=== PATIENT | female | born 1930 | race Caucasian/White ===

== ENCOUNTER 2019-10-10 08:05 | Observation (INO) | payer MEDICARE, BC ==
[2019-10-10] MEDS ORDERED: Sodium Chloride 0.9% 10 ML Syringe FLUSH PRN (08:23)
[2019-10-10] MEDS ORDERED: hydrALAZINE 20 MG/ML SDV IVPUSH ONE (08:47)
--- NOTE | 2019-10-10 08:57 | EDM.PDOC ---
ED HPI GENERAL MEDICAL PROBLEM - General Chief Complaint: Neuro Symptoms/Deficits Stated Complaint: FROM KIMBERLY MARTIN Time Seen by Provider: 10/10/19 08:40 Source of Information: Reports: Patient, RN History Limitations: Reports: Other (limited medical records, new patient) - History of Present Illness INITIAL COMMENTS - FREE TEXT/NARRATIVE: 89 yo female new resident at [facility] assisted living presents with a LÓPEZ and pain in the R eye that began in the night last night. Her BP is also quite high today. She has taken all of her usual meds, but has not eaten yet today. She has a DNR status. She reports some intermittent L hand numbness since last night, but has none now. She denies nausea or stiff neck. No fever. No chest pain or SOB. She is on Eliquis. Kimberly Martin was contacted and it sounds like her BP's have been climbing for the past couple of weeks. BP was 165/68 on 09/24, 195/91 on 10/01, and 191/82 yesterday. Onset: Today Onset Date: 10/10/19 Duration: Hour(s):, Waxing/Waning Location: Reports: Head (headache), Face (R eye), Upper Extremity, Left (L hand numbness) Quality: Reports: Ache (head) Severity: Moderate Improves with: Reports: None Worsens with: Reports: Other (? time, ? BP elevation) Context: Reports: Other (See HPI) Associated Symptoms: Reports: Headaches, Other (L hand numbness intermitttently) . Denies: Fever/Chills, Nausea/Vomiting, Rash Treatments DIRECTOR DATA: Reports: Other (see below) (usual meds were given this am before arrival. ) Headache Pain Score (Numeric/FACES): 10 - Related Data Allergies Allergy/AdvReac Type Severity Reaction Status Date / Time atorvastatin Allergy Dizziness Verified 10/10/19 08:27 morphine Allergy Hallucinati Verified 10/10/19 08:26 ons Home Meds: Home Meds Abaloparatide [Tymlos] 80 mcg SQ DAILY 10/10/19 [History] Acetaminophen 650 mg PO Q6H PRN 10/10/19 [History] Apixaban [Eliquis] 2.5 mg PO BID 10/10/19 [History] Calcium Carbonate [Calcium] 600 mg PO BID 10/10/19 [History] Cholecalciferol (Vitamin D3) [Vitamin D3] 2,000 unit PO DAILY 10/10/19 [History] Cyanocobalamin (Vitamin B-12) [Vitamin B-12] 1,000 mcg PO DAILY 10/10/19 [ History] Ergocalciferol (Vitamin D2) [Vitamin D2] 1 tab PO ASDIRECTED 10/10/19 [History] Furosemide [Lasix] 20 mg PO ASDIRECTED PRN 10/10/19 [History] Glimepiride 1 mg PO DAILY 10/10/19 [History] Levothyroxine [Synthroid] 50 mcg PO ACBREAKFAST 10/10/19 [History] Metoprolol Succinate 50 mg PO DAILY 10/10/19 [History] Ondansetron [Ondansetron ODT] 4 mg PO Q8H PRN 10/10/19 [History] Sennosides/Docusate Sodium [Senna-S] 1 tab PO BID 10/10/19 [History] Sotalol [Betapace] 80 mg PO DAILY 10/10/19 [History] Ubidecarenone [Coenzyme Q10] 2 tab PO DAILY 10/10/19 [History] metFORMIN [Glucophage] 500 mg PO BIDMEALS 10/10/19 [History] oxyCODONE 2.5 mg PO Q4H PRN 10/10/19 [History] Past Medical History HEENT History: Reports: Hard of Hearing, Impaired Vision Cardiovascular History: Reports: [place], [place] Respiratory History: Reports: Other (See Below) Other Respiratory History: Acute respiratory faiure [employer] LE[employer]ER History: Reports: Musculoskeletal History: Reports: Fracture, Osteoporosis Neurological History: Reports: TIA Other Neuro History: Cerebrovasulaar disease Endocrine/Metabolic History: Reports: Diabetes, Type II, Hypothyroidism - Infectious Disease History Infectious Disease History: Reports: Chicken Pox, Measles, Mumps Social & Family History - Tobacco Use Smoking Status *Q: Unknown Ever Smoked ED ROS GENERAL - Review of Systems Review Of Systems: See Below Constitutional: Reports: No Symptoms HEENT: Reports: Eye Pain (R eye). Denies: Vision Change Respiratory: Reports: No Symptoms Cardiovascular: Reports: Blood Pressure Problem (high) GI/Abdominal: Reports: No Symptoms : Reports: No Symptoms Musculoskeletal: Reports: No Symptoms Skin: Reports: No Symptoms Neurological: Reports: Headache, Numbness (R hand intermittently), Other (no swallowing issues so far.). Denies: Seizure, Weakness, Change in Speech Psychiatric: Reports: No Symptoms Hematologic/Lymphatic: Reports: No Symptoms Immunologic: Reports: No Symptoms - Physical Exam Exam: See Below Exam Limited By: No Limitations General Appearance: Alert, WD/WN, No Apparent Distress Eye Exam: Bilateral Eye: EOMI, Normal Inspection, PERRL Ears: Normal External Exam, Normal Canal, Hearing Grossly Normal Nose: Normal Inspection, No Blood Throat/Mouth: Normal Inspection, Normal Lips, Normal Oropharynx, Normal Voice, No Airway Compromise Head Exam: Atraumatic, Normocephalic Neck: Normal Inspection Respiratory/Chest: No Respiratory Distress, Lungs Clear, Normal Breath Sounds, No Accessory Muscle Use Cardiovascular: Regular Rate, Rhythm, No Edema, Other GI/Abdominal: Normal Bowel Sounds, Soft, No Distention Neuro Exam (Abbreviated): Alert, Oriented, CN II-XII Intact, Normal Cognition, No Motor/Sensory Deficits Back Exam: Normal Inspection Extremities: Normal Inspection, Normal Range of Motion, Non-Tender, No Pedal Edema Psychiatric: Normal Affect, Normal Mood Skin Exam: Warm, Dry, Intact, Normal Color, No Rash EKG INTERPRETATION EKG Date: 10/10/19 Time: 10:55 Rhythm: NSR Rate (Beats/Min): 80 [place]: Normal P-Wave: Present QRS: Normal ST-T: Normal QT: Prolonged (borderline prolonged) MD/PQ Interval: borderline prolonged. Comparison: NA - No Prior EKG EKG Interpretation Comments: Flipped T's V5 and V6, and II, III and AVF Course - Vital Signs Text/Narrative:: BP dropped excessively after Hydralazine 25 mg IV. I fluid bolus of NS 1000 ml brought her BP back up into a normal range. The pain behind her R eye and her LÓPEZ are both gone now. She does have some residual nausea, but has not vomited. Compazine 5 mg IV reduced her nausea, but did not eliminate it. The numbness in her L hand did not return. Will try some Maalox and acetaminophen for her upset stomach(started after taking her morning meds on an empty stomach before arrival ). Dr. Tolbert called @ 11:15h, will bring in as OBS patient. Last Recorded V/S: Last Vital Signs Temp 36.6 C 10/10/19 08:23 Pulse 75 10/10/19 10:34 Resp 16 10/10/19 10:34 BP 147/65 H 10/10/19 10:34 Pulse Ox 93 L 10/10/19 10:34 - Orders/Labs/Meds Orders: Active Orders 24 hr Category Date Time Status Cardiac Monitoring [RC] .As Directed Care 10/10/19 08:23 Active EKG Documentation Completion [RC] ASDIRECTED Care 10/10/19 10:44 Active CULTURE URINE [RM] Stat Lab 10/10/19 10:39 Received Sodium Chloride 0.9% [Normal Saline] 1,000 ml Med 10/10/19 09:45 Active IV ASDIRECTED Sodium Chloride 0.9% [Saline Flush] Med 10/10/19 08:23 Active 10 ml FLUSH ASDIRECTED PRN Saline Lock Insert [OM.PC] Routine Oth 10/10/19 08:23 Ordered EKG 12 Lead [EK] Routine Ther 10/10/19 10:43 Ordered Medication Orders Sodium Chloride (Normal Saline) 1,000 mls @ 100 mls/hr IV ASDIRECTED BUCK Last Admin: 10/10/19 09:45 Dose: 100 mls/hr Sodium Chloride (Saline Flush) 10 ml FLUSH ASDIRECTED PRN PRN Reason: Keep Vein Open Last Admin: 10/10/19 08:27 Dose: 10 ml Labs: Laboratory Tests 10/10/19 10/10/19 10/10/19 Range/Units 08:24 08:29 08:29 WBC 4.8 (4.5-11.0) K/uL RBC 4.56 (3.30-5.50) M/uL Hgb 13.6 (12.0-15.0) g/dL Hct 42.4 (36.0-48.0) % MCV 93 (80-98) fL MCH 30 (27-31) pg MCHC 32 (32-36) % Plt Count 269 (150-400) K/uL PT 10.4 (9.5-12.0) sec INR 0.96 (0.80-1.20) Sodium (140-148) mmol/L Potassium (3.6-5.2) mmol/L Chloride (100-108) mmol/L Carbon Dioxide (21-32) mmol/L Anion Gap (5.0-14.0) mmol/L BUN (7-18) mg/dL Creatinine (0.6-1.0) mg/dL Est Cr Clr Drug Dosing mL/min Estimated GFR (MDRD) (>60) Glucose (74-106) mg/dL Calcium (8.5-10.1) mg/dL Troponin I (0.000-0.056) ng/mL Urine Color Yellow (YELLOW) Urine Appearance Slightly cloudy A (CLEAR) Urine pH 8.0 (5.0-8.0) Ur Specific [place] 1.025 (1.008-1.030) Urine Protein Trace H (NEGATIVE) mg/dL Urine Glucose (UA) Negative (NEGATIVE) mg/dL Urine Ketones 15 H (NEGATIVE) mg/dL Urine Occult Blood Negative (NEGATIVE) Urine Nitrite Negative (NEGATIVE) Urine Bilirubin Negative (NEGATIVE) Urine Urobilinogen 0.2 (0.2-1.0) EU/dL Ur Leukocyte Esterase Small H (NEGATIVE) Urine RBC 0-5 (0-5) Urine WBC 20-30 H (0-5) Ur Epithelial Cells Few Amorphous Sediment Not seen Urine Bacteria Moderate Urine Mucus Not seen 10/10/19 Range/Units 08:29 WBC (4.5-11.0) K/uL RBC (3.30-5.50) M/uL Hgb (12.0-15.0) g/dL Hct (36.0-48.0) % MCV (80-98) fL MCH (27-31) pg MCHC (32-36) % Plt Count (150-400) K/uL PT (9.5-12.0) sec INR (0.80-1.20) Sodium 134 L (140-148) mmol/L Potassium 4.4 (3.6-5.2) mmol/L Chloride 97 L (100-108) mmol/L Carbon Dioxide 28 (21-32) mmol/L Anion Gap 13.4 (5.0-14.0) mmol/L BUN 19 H (7-18) mg/dL Creatinine 1.1 H (0.6-1.0) mg/dL Est Cr Clr Drug Dosing 29.81 mL/min Estimated GFR (MDRD) 47 L (>60) Glucose 204 H (74-106) mg/dL Calcium 9.1 (8.5-10.1) mg/dL Troponin I < 0.017 (0.000-0.056) ng/mL Urine Color (YELLOW) Urine Appearance (CLEAR) Urine pH (5.0-8.0) Ur Specific [place] (1.008-1.030) Urine Protein (NEGATIVE) mg/dL Urine Glucose (UA) (NEGATIVE) mg/dL Urine Ketones (NEGATIVE) mg/dL Urine Occult Blood (NEGATIVE) Urine Nitrite (NEGATIVE) Urine Bilirubin (NEGATIVE) Urine Urobilinogen (0.2-1.0) EU/dL Ur Leukocyte Esterase (NEGATIVE) Urine RBC (0-5) Urine WBC (0-5) Ur Epithelial Cells Amorphous Sediment Urine Bacteria Urine Mucus Meds: Medications Generic Name Dose Route Start Last Admin Trade Name Freq PRN Reason Stop Dose Admin Sodium Chloride 1,000 mls @ 100 mls/hr 10/10/19 09:45 10/10/19 09:45 Normal Saline IV 100 mls/hr ASDIRECTED BUCK Administration Sodium Chloride 10 ml 10/10/19 08:23 10/10/19 08:27 Saline Flush FLUSH 10 ml ASDIRECTED PRN Administration Keep Vein Open Discontinued Medications Generic Name Dose Route Start Last Admin Trade Name Freq PRN Reason Stop Dose Admin Acetaminophen 1,000 mg 10/10/19 09:18 10/10/19 10:27 Tylenol Extra Strength PO 10/10/19 09:19 1,000 mg ONETIME ONE Administration Al Hydroxide/Mg Hydroxide 30 ml 10/10/19 09:50 10/10/19 09:51 Mag-Al Plus PO 10/10/19 09:51 30 ml ONETIME ONE Administration Cephalexin 500 mg 10/10/19 10:36 10/10/19 10:59 Keflex PO 10/10/19 10:37 500 mg ONETIME ONE Administration Hydralazine HCl 25 mg 10/10/19 08:47 10/10/19 08:56 Apresoline IVPUSH 10/10/19 08:48 25 mg ONETIME ONE Administration Sodium Chloride 1,000 mls @ 1,000 mls/hr 10/10/19 09:13 10/10/19 09:19 Normal Saline IV 10/10/19 10:12 1,000 mls/hr .BOLUS ONE Administration Prochlorperazine Edisylate 5 mg 10/10/19 09:07 10/10/19 09:10 Compazine IVPUSH 10/10/19 09:08 5 mg ONETIME ONE Administration - Radiology Interpretation Free Text/Narrative:: Head CT scan-neg CT Results Date: 10/10/19 CT Results Time: 09:10 Departure - Departure Time of Disposition: 11:30 Disposition: Refer to Observation Clinical Impression: Elevated blood pressure reading, Inverted T wave HTN (hypertension) Qualifiers: Hypertension type: unspecified Qualified Code(s): I10 - Essential (primary) hypertension UTI (urinary tract infection) Qualifiers: Urinary tract infection type: acute cystitis Hematuria presence: without hematuria Qualified Code(s): N30.00 - Acute cystitis without hematuria Headache Qualifiers: Headache type: unspecified Headache chronicity pattern: acute headache Intractability: not intractable Qualified Code(s): R51 - Headache - Discharge Information *PRESCRIPTION DRUG MONITORING PROGRAM REVIEWED*: Not Applicable *COPY OF PRESCRIPTION DRUG MONITORING REPORT IN PATIENT DONNA: Not Applicable Referrals: Payam Calloway MD [Primary Care Provider] - Forms: ED Department Discharge Sepsis Event Note - Evaluation Sepsis Screening Result: No Definite Risk - Focused Exam Vital Signs: Vital Signs Temp Pulse Resp BP Pulse Ox 10/10/19 10:34 75 16 147/65 H 93 L 10/10/19 09:46 79 19 115/50 L 96 10/10/19 09:19 70 10 L 107/44 L 94 L 10/10/19 09:14 65 18 74/42 L 96 10/10/19 09:11 59 L 12 81/37 L 98 10/10/19 09:08 58 L 19 129/99 H 97 10/10/19 08:58 63 16 218/93 H 96 10/10/19 08:23 36.6 C 65 16 244/127 H 96 10/10/19 08:05 36.6 C 65 16 254/124 H 96 Date Exam was Performed: 10/10/19 Time Exam was Performed: 11:08 - My Orders Last 24 Hours: My Active Orders 10/10/19 08:23 Cardiac Monitoring [RC] .As Directed Sodium Chloride 0.9% [Saline Flush] 10 ml FLUSH ASDIRECTED PRN Saline Lock Insert [OM.PC] Routine 10/10/19 09:45 Sodium Chloride 0.9% [Normal Saline] 1,000 ml IV ASDIRECTED 04/21/20 10:39 CULTURE URINE [RM] Stat 10/10/19 10:43 EKG 12 Lead [EK] Routine 10/10/19 10:44 EKG Documentation Completion [RC] ASDIRECTED - Assessment/Plan Last 24 Hours: My Active Orders 10/10/19 08:23 Cardiac Monitoring [RC] .As Directed Sodium Chloride 0.9% [Saline Flush] 10 ml FLUSH ASDIRECTED PRN Saline Lock Insert [OM.PC] Routine 10/10/19 09:45 Sodium Chloride 0.9% [Normal Saline] 1,000 ml IV ASDIRECTED 10/10/19 10:39 CULTURE URINE [RM] Stat 10/10/19 10:43 EKG 12 Lead [EK] Routine 10/10/19 10:44 EKG Documentation Completion [RC] ASDIRECTED
--- NOTE | 2019-10-10 09:05 | CRLCT ---
INDICATION : New neurological deficit. Stroke protocol. TECHNIQUE : Noncontrast CT scan of brain. Axial images. Bone windows. Please note that all CT scans at this facility use dose modulation, iterative reconstruction and/or weight-based dosing when appropriate to reduce radiation dose to as low as reasonably achievable(ALARA). COMPARISON: None. FINDINGS : No acute intra or extra-axial hemorrhage. No visualized intracranial mass. Minimal age related atrophy. Scattered areas of periventricular and deep white matter low attenuation, likely sequela from chronic microvascular disease. Hess-white matter differentiation preserved. Atherosclerotic vascular calcification in the bilateral intracranial carotid arteries. No dense MCA sign. Bony calvarium is intact. IMPRESSION : 1. No acute territorial infarct, mass effect, or hemorrhage. 2. Mild degree of age-related atrophy and chronic microvascular disease. 3. Consider correlation with brain MRI for improved sensitivity in evaluation of acute ischemia as clinically warranted. Dictated by James Cohen MD @ 10/10/2019 9:03:20 AM Please note that all CT scans at this facility use dose modulation, iterative reconstruction, and/or weight-based dosing when appropriate to reduce radiation dose to as low as reasonably achievable. Dictated by: James Cohen MD @ 10/10/2019 09:03:33 (Electronically Signed)
[2019-10-10] MEDS ORDERED: Prochlorperazine 10 MG/2 ML SDV IVPUSH ONE (09:07)
[2019-10-10] MEDS ORDERED: Sodium Chloride 0.9% 1,000 ML IV ONE (09:13)
[2019-10-10] MEDS ORDERED: Acetaminophen 500 MG Tab PO ONE (09:18)
[2019-10-10] MEDS ORDERED: Sodium Chloride 0.9% 1,000 ML IV SCH (09:45)
[2019-10-10] MEDS ORDERED: Aluminum Hydroxide/Magnesium Hydroxide/Simethicone Susp 30 ML Cup PO ONE (09:50)
[2019-10-10] MEDS ORDERED: Cephalexin 250 MG Cap PO ONE (10:36)
--- NOTE | 2019-10-10 12:31 | PCM.HP.2 ---
H&P History of Present Illness - General Date of Service: 10/10/19 Admit Problem/Dx: Admission Diagnosis/Problem Admission Diagnosis/Problem Acute cystitis without hematuria Source of Information: Patient, Provider History Limitations: Reports: No Limitations - History of Present Illness Initial Comments - Free Text/Narative: CC: I had a headache HPI: Cammy presented to the emergency room today with concerns about headache, right eye pain and left hand numbness as well as nausea and generalized abdominal pain. She noted onset of nausea and mild generalized abdominal pain yesterday. She described a crampy or achy pain in her abdomen. The pain radiated throughout her abdomen. She did not take anything to make it feel better. The pain has worsened overnight to the point that it is now moderate. She has had persistent nausea as well as episodes of vomiting which have been small-volume. When she woke up this morning she had a frontal headache which was moderate in nature. She described a slightly more intense pain behind the right eye. She also had some numbness of her left hand but no change in her strength. She has not had any fevers or chills. She feels a little short of breath and weak. No change in bowel or bladder habits. She has not slept well the last 3 nights. Blood pressure the last few days has been running high at her assisted living facility but she has not had any fevers noted there. Work-up in the emergency room initially revealed significant hypertension with a systolic blood pressure higher than 200. An attempt to lower her blood pressure was made with hydralazine but unfortunately this dropped it significantly. Her blood pressure did improve with some IV fluids. Laboratory studies were fairly unremarkable. Urinalysis was moderately suggestive of infection. Head CT did not show any acute findings. Patient has had persistent nausea and some abdominal pain. She did receive an oral dose of antibiotics for the urinary tract infection. She will be admitted for observation and additional management. Headache Pain Score (Numeric/FACES): 10 - Related Data Allergies/Adverse Reactions: Allergies Allergy/AdvReac Type Severity Reaction Status Date / Time atorvastatin Allergy Dizziness Verified 10/10/19 08:27 morphine Allergy Hallucinati Verified 10/10/19 08:26 ons Home Medications: Home Meds Abaloparatide [Tymlos] 80 mcg SQ DAILY 10/10/19 [History] Acetaminophen 650 mg PO Q6H PRN 10/10/19 [History] Apixaban [Eliquis] 2.5 mg PO BID 10/10/19 [History] Calcium Carbonate [Calcium] 600 mg PO BID 10/10/19 [History] Cholecalciferol (Vitamin D3) [Vitamin D3] 2,000 unit PO DAILY 10/10/19 [History] Cyanocobalamin (Vitamin B-12) [Vitamin B-12] 1,000 mcg PO DAILY 10/10/19 [ History] Ergocalciferol (Vitamin D2) [Vitamin D2] 1 tab PO ASDIRECTED 10/10/19 [History] Furosemide [Lasix] 20 mg PO ASDIRECTED PRN 10/10/19 [History] Glimepiride 1 mg PO DAILY 10/10/19 [History] Levothyroxine [Synthroid] 50 mcg PO ACBREAKFAST 10/10/19 [History] Metoprolol Succinate 50 mg PO DAILY 10/10/19 [History] Ondansetron [Ondansetron ODT] 4 mg PO Q8H PRN 10/10/19 [History] Sennosides/Docusate Sodium [Senna-S] 1 tab PO BID 10/10/19 [History] Sotalol [Betapace] 80 mg PO DAILY 10/10/19 [History] Ubidecarenone [Coenzyme Q10] 2 tab PO DAILY 10/10/19 [History] metFORMIN [Glucophage] 500 mg PO BIDMEALS 10/10/19 [History] oxyCODONE 2.5 mg PO Q4H PRN 10/10/19 [History] Past Medical History HEENT History: Reports: Hard of Hearing, Impaired Vision Cardiovascular History: Reports: Afib, [place] Respiratory History: Reports: Other (See Below) Other Respiratory History: Acute respiratory faiure 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: Musculoskeletal History: Reports: Fracture, Osteoporosis Neurological History: Reports: TIA Other Neuro History: Cerebrovasulaar disease Endocrine/Metabolic History: Reports: Diabetes, Type II, Hypothyroidism - Infectious Disease History Infectious Disease History: Reports: Chicken Pox, Measles, Mumps Social & Family History - Family History Cardiac: Denies: CAD - Tobacco Use Smoking Status *Q: Unknown Ever Smoked - Alcohol Use Alcohol Use History: No H&P Review of Systems - Review of Systems: Review Of Systems: See Below Free Text/Narrative: A complete 12 point review of systems was obtained. Pertinent positives and negatives are noted in the history of present illness. All other systems were reviewed and were negative except as noted. Exam - Exam Exam: See Below - Vital Signs Vital Signs: Last Vital Signs Temp 36.6 C 10/10/19 08:23 Pulse 75 10/10/19 10:34 Resp 16 10/10/19 10:34 BP 147/65 H 10/10/19 10:34 Pulse Ox 93 L 10/10/19 10:34 Weight: 58.06 kg - Exam Quality Assessment: No: Supplemental Oxygen General: Alert, Oriented, Cooperative, Mild Distress HEENT: Conjunctiva Clear. No: Mucosa Moist & [place] (dry), Scleral Icterus Neck: Supple, Trachea Midline Lungs: Clear to Auscultation, Normal Respiratory Effort Cardiovascular: Regular Rate, Regular Rhythm GI/Abdominal Exam: Normal Bowel Sounds, Soft, Distended (mild), Tender ( generalized ) Back Exam: Normal Inspection, Full Range of Motion Extremities: No Pedal Edema. No: Increased Warmth Peripheral Pulses: 2+: Dorsalis Pedis (L), Dorsalis Pedis (R) Skin: Warm, Dry Neuro Extensive - Mental Status: Alert, Oriented x3, Nl Response to Commands Neuro Extensive - Motor, Sensory, Reflexes: No: Dysarthria, Abnormal Motor, Tremor Psychiatric: Alert, Normal Affect - Patient Data Lab Results Last 24 hrs: Laboratory Results - last 24 hr 10/10/19 10/10/19 10/10/19 Range/Units 08:24 08:29 08:29 WBC 4.8 (4.5-11.0) K/uL RBC 4.56 (3.30-5.50) M/uL Hgb 13.6 (12.0-15.0) g/dL Hct 42.4 (36.0-48.0) % MCV 93 (80-98) fL MCH 30 (27-31) pg MCHC 32 (32-36) % Plt Count 269 (150-400) K/uL PT 10.4 (9.5-12.0) sec INR 0.96 (0.80-1.20) Sodium (140-148) mmol/L Potassium (3.6-5.2) mmol/L Chloride (100-108) mmol/L Carbon Dioxide (21-32) mmol/L Anion Gap (5.0-14.0) mmol/L BUN (7-18) mg/dL Creatinine (0.6-1.0) mg/dL Est Cr Clr Drug Dosing mL/min Estimated GFR (MDRD) (>60) Glucose (74-106) mg/dL Calcium (8.5-10.1) mg/dL Troponin I (0.000-0.056) ng/mL Urine Color Yellow (YELLOW) Urine Appearance Slightly cloudy A (CLEAR) Urine pH 8.0 (5.0-8.0) Ur Specific Berry 1.025 (1.008-1.030) Urine Protein Trace H (NEGATIVE) mg/dL Urine Glucose (UA) Negative (NEGATIVE) mg/dL Urine Ketones 15 H (NEGATIVE) mg/dL Urine Occult Blood Negative (NEGATIVE) Urine Nitrite Negative (NEGATIVE) Urine Bilirubin Negative (NEGATIVE) Urine Urobilinogen 0.2 (0.2-1.0) EU/dL Ur Leukocyte Esterase Small H (NEGATIVE) Urine RBC 0-5 (0-5) Urine WBC 20-30 H (0-5) Ur Epithelial Cells Few Amorphous Sediment Not seen Urine Bacteria Moderate Urine Mucus Not seen 10/10/19 Range/Units 08:29 WBC (4.5-11.0) K/uL RBC (3.30-5.50) M/uL Hgb (12.0-15.0) g/dL Hct (36.0-48.0) % MCV (80-98) fL MCH (27-31) pg MCHC (32-36) % Plt Count (150-400) K/uL PT (9.5-12.0) sec INR (0.80-1.20) Sodium 134 L (140-148) mmol/L Potassium 4.4 (3.6-5.2) mmol/L Chloride 97 L (100-108) mmol/L Carbon Dioxide 28 (21-32) mmol/L Anion Gap 13.4 (5.0-14.0) mmol/L BUN 19 H (7-18) mg/dL Creatinine 1.1 H (0.6-1.0) mg/dL Est Cr Clr Drug Dosing 29.81 mL/min Estimated GFR (MDRD) 47 L (>60) Glucose 204 H (74-106) mg/dL Calcium 9.1 (8.5-10.1) mg/dL Troponin I < 0.017 (0.000-0.056) ng/mL Urine Color (YELLOW) Urine Appearance (CLEAR) Urine pH (5.0-8.0) Ur Specific Berry (1.008-1.030) Urine Protein (NEGATIVE) mg/dL Urine Glucose (UA) (NEGATIVE) mg/dL Urine Ketones (NEGATIVE) mg/dL Urine Occult Blood (NEGATIVE) Urine Nitrite (NEGATIVE) Urine Bilirubin (NEGATIVE) Urine Urobilinogen (0.2-1.0) EU/dL Ur Leukocyte Esterase (NEGATIVE) Urine RBC (0-5) Urine WBC (0-5) Ur Epithelial Cells Amorphous Sediment Urine Bacteria Urine Mucus Result Diagrams: 10/10/19 08:29 10/10/19 08:29 Imaging Impressions Last 24 hrs: Head CT-images personally reviewed-mild chronic small vessel ischemic disease but no acute findings such as mass, bleed or stroke EKG INTERPRETATION EKG Date: 10/10/19 Rhythm: NSR Rate (Beats/Min): 80 Dix: Normal P-Wave: Present QRS: Normal ST-T: Other (inverted T in II, III, avf, V5 and V6) QT: Normal Comparison: NA - No Prior EKG Sepsis Event Note - Evaluation Sepsis Screening Result: No Definite Risk - Focused Exam Vital Signs: Vital Signs Temp Pulse Resp BP Pulse Ox 10/10/19 10:34 75 16 147/65 H 93 L 10/10/19 09:46 79 19 115/50 L 96 10/10/19 09:19 70 10 L 107/44 L 94 L 10/10/19 09:14 65 18 74/42 L 96 10/10/19 09:11 59 L 12 81/37 L 98 10/10/19 09:08 58 L 19 129/99 H 97 10/10/19 08:58 63 16 218/93 H 96 10/10/19 08:23 36.6 C 65 16 244/127 H 96 10/10/19 08:05 36.6 C 65 16 254/124 H 96 Date Exam was Performed: 10/10/19 Time Exam was Performed: 14:47 *Q Meaningful Use (ADM) - VTE Risk Assess *Q Each Risk Factor Represents 1 Point: None Total Score 1 Point Risk Factors: 0 Each Risk Factor Represents 2 Points: None Total Score 2 Point Risk Factors: 0 Each Risk Factor Represents 3 Points: Age 75 Years or Greater Total Score 3 Point Risk Factors: 3 Each Risk Factor Represents 5 Points: None Total Score 5 Point Risk Factors: 0 Venous Thromboembolism Risk Factor Score *Q: 3 - Problem List (1) Acute cystitis without hematuria SNOMED Code(s): 77032455 ICD Code: N30.00 - ACUTE CYSTITIS WITHOUT HEMATURIA Status: Acute Current Visit: Yes (2) Abdominal pain, generalized SNOMED Code(s): 890014207 ICD Code: R10.84 - GENERALIZED ABDOMINAL PAIN Status: Acute Current Visit : Yes (3) Nausea & vomiting SNOMED Code(s): 44535484 ICD Code: R11.2 - NAUSEA WITH VOMITING, UNSPECIFIED Status: Acute Current Visit: Yes Qualifiers: Vomiting type: unspecified Vomiting Intractability: non-intractable Qualified Code(s): R11.2 - Nausea with vomiting, unspecified (4) DM II (diabetes mellitus, type II), controlled SNOMED Code(s): 16912139, 160337989 ICD Code: E11.9 - TYPE 2 DIABETES MELLITUS WITHOUT COMPLICATIONS Status: Chronic Current Visit: Yes Qualifiers: Diabetes mellitus superintendent container terminal insulin use: without longterm use Diabetes mellitus complication status: with unspecified complications Qualified Code(s) : E11.8 - Type 2 diabetes mellitus with unspecified complications (5) HTN (hypertension) SNOMED Code(s): 62127147 ICD Code: I10 - ESSENTIAL (PRIMARY) HYPERTENSION Status: Chronic Current Visit: Yes Qualifiers: Hypertension type: essential hypertension Qualified Code(s): I10 - Essential (primary) hypertension Problem List Initiated/Reviewed/Updated: Yes Orders Last 24hrs: Active Orders 24 hr Category Date Time Status Patient Status Manage Transfer [TRANSFER] Routine ADT 10/10/19 12:14 Ordered Cardiac Monitoring [RC] .As Directed Care 10/10/19 08:23 Active EKG Documentation Completion [RC] ASDIRECTED Care 10/10/19 10:44 Active CULTURE URINE [RM] Stat Lab 10/10/19 10:39 Received Sodium Chloride 0.9% [Normal Saline] 1,000 ml Med 10/10/19 09:45 Active IV ASDIRECTED Sodium Chloride 0.9% [Saline Flush] Med 10/10/19 08:23 Active 10 ml FLUSH ASDIRECTED PRN Saline Lock Insert [OM.PC] Routine Oth 10/10/19 08:23 Ordered Resuscitation Status Routine Resus Stat 10/10/19 12:19 Ordered EKG 12 Lead [EK] Routine Ther 10/10/19 10:43 Ordered Medication Orders Sodium Chloride (Normal Saline) 1,000 mls @ 100 mls/hr IV ASDIRECTED BUCK Last Admin: 10/10/19 09:45 Dose: 100 mls/hr Sodium Chloride (Saline Flush) 10 ml FLUSH ASDIRECTED PRN PRN Reason: Keep Vein Open Last Admin: 10/10/19 08:27 Dose: 10 ml Assessment/Plan Comment:: ASSESSMENT AND PLAN - Acute cystitis without hematuria-although this infection was asymptomatic I suspect that this is the cause for her accelerated hypertension, nausea and abdominal pain. Laboratory studies are unremarkable. No other obvious cause for the abnormalities outlined above. Vitals are stable with no evidence for sepsis. Blood pressure currently acceptable. No evidence for acute coronary syndrome to explain symptoms. -Ceftriaxone -Follow-up urine culture -Symptomatic management of abdominal pain and nausea -IV fluids Type 2 diabetes mellitus-well controlled by history. -Continue home medications Essential hypertension-blood pressure initially elevated but has stabilized after medication and IV fluids. -Continue metoprolol Paroxysmal atrial fibrillation-currently in sinus rhythm. -Continue rate control and anticoagulation Maintenance issues - - DVT prophylaxis -apixaban - GI prophylaxis -not indicated - Nutrition -consistent carbohydrates - Hutchins catheter -not indicated CODE STATUS -DNR/DNI Admission justification -patient will be referred observation status for initiation of antibiotics and symptom management. Disposition -I would anticipate discharge home after the hospital stay Primary care physician -Dr. Payam Tolbert M.D. - Mortality Measure Prognosis:: Good
[2019-10-10] MEDS ORDERED: oxyCODONE 5 MG Tab PO PRN (13:41)
[2019-10-10] MEDS ORDERED: Ondansetron 4 MG Tab.DIS PO PRN (13:41)
[2019-10-10] MEDS ORDERED: Magnesium Hydroxide 400 MG/5 ML Susp 30 ML Cup PO PRN (13:41)
[2019-10-10] MEDS ORDERED: HYDROmorphone 0.5 MG/0.5 ML Syringe IVPUSH PRN (13:41)
[2019-10-10] MEDS ORDERED: Ondansetron 4 MG/2 ML SDV IV PRN (13:41)
[2019-10-10] MEDS ORDERED: LORazepam 2 MG/ML SDV IVPUSH PRN (13:41)
[2019-10-10] MEDS ORDERED: Acetaminophen 325 MG Tab PO PRN (13:41)
[2019-10-10] MEDS: cefTRIAXone 1 GM in Sodium Chloride 0.9% 50 ML IV SCH (15:07)
[2019-10-10] MEDS: METFORMIN 500 MG PO SCH (18:15)
[2019-10-10] MEDS: CALCIUM CARBONATE 600 MG PO SCH (18:15)
[2019-10-10] MEDS: Melatonin 3 MG Tab PO SCH (21:00)
[2019-10-10] MEDS: SOTALOL 80 MG PO SCH (21:02)
[2019-10-10] MEDS: APIXABAN 2.5 MG PO SCH (21:02)
[2019-10-10] MEDS: Sodium Chloride 0.9% 1,000 ML IV SCH (21:06)
[2019-10-11] MEDS: Sodium Chloride 0.9% 1,000 ML IV SCH (06:34)
[2019-10-11] MEDS: Levothyroxine 50 MCG Tab*POM PO SCH (06:34)
[2019-10-11] MEDS: CALCIUM CARBONATE 600 MG PO SCH ×2 (08:29→16:57)
[2019-10-11] MEDS: METFORMIN 500 MG PO SCH ×2 (08:29→16:57)
[2019-10-11] MEDS: APIXABAN 2.5 MG PO SCH ×2 (08:29→20:12)
[2019-10-11] MEDS: CYANOCOBALAMIN 1000 MCG PO SCH (08:32)
[2019-10-11] MEDS: Metoprolol Succinate 50 MG Tab.ER*POM PO SCH (08:34)
[2019-10-11] MEDS ORDERED: Furosemide 40 MG/4 ML VIAL IVPUSH ONE (11:40)
--- NOTE | 2019-10-11 11:54 | PCM.PN ---
- General Info Date of Service: 10/11/19 Subjective Update: There were no acute events overnight. Her blood pressure did stabilize overnight but this morning is elevated at 190-200 systolic. She feels much better today. No headache or eye pain. No nausea or abdominal pain. She does report that she feels more short of breath today. She did have some orthopnea last night. No fevers. Urine culture growing mixed erich so far. Functional Status: Reports: Pain Controlled, Tolerating Diet - Review of Systems General: Reports: Weakness. Denies: Fever Pulmonary: Reports: Shortness of Breath - Patient Data Vitals - Most Recent: Last Vital Signs Temp 36.9 C 10/11/19 11:37 Pulse 77 10/11/19 11:37 Resp 22 H 10/11/19 11:37 BP 219/92 H 10/11/19 11:37 Pulse Ox 93 L 10/11/19 11:37 Weight - Most Recent: 58.06 kg I&O - Last 24 Hours: Intake & Output 10/10/19 10/11/19 10/11/19 22:59 06:59 14:59 Intake Total 350 801 340 Output Total 250 400 Balance 350 551 -60 Lab Results Last 24 Hours: Laboratory Results - last 24 hr 10/11/19 10/11/19 Range/Units 04:36 04:36 WBC 6.3 (4.5-11.0) K/uL RBC 4.18 (3.30-5.50) M/uL Hgb 12.6 (12.0-15.0) g/dL Hct 39.0 (36.0-48.0) % MCV 93 (80-98) fL MCH 30 (27-31) pg MCHC 32 (32-36) % Plt Count 234 (150-400) K/uL Sodium 137 L (140-148) mmol/L Potassium 3.9 (3.6-5.2) mmol/L Chloride 102 (100-108) mmol/L Carbon Dioxide 24 (21-32) mmol/L Anion Gap 14.9 H (5.0-14.0) mmol/L BUN 14 (7-18) mg/dL Creatinine 0.8 (0.6-1.0) mg/dL Est Cr Clr Drug Dosing 40.97 mL/min Estimated GFR (MDRD) > 60 (>60) Glucose 157 H (74-106) mg/dL Calcium 8.3 L (8.5-10.1) mg/dL Grupo Results Last 24 Hours: Microbiology 10/10/19 10:39 Urine Culture - Preliminary Urine, Clean Catch MIXED POSITIVE ERICH DAY 1 Med Orders - Current: Current Medications Acetaminophen (Tylenol) 650 mg PO Q4H PRN PRN Reason: Pain (Mild 1-3)/fever Apixaban (Eliquis) 2.5 mg PO BID [facility] Last Admin: 10/11/19 08:29 Dose: 2.5 mg Cyanocobalamin (Vitamin B12) 1,000 mcg PO DAILY [facility] Last Admin: 10/11/19 08:32 Dose: 1,000 mcg Hydromorphone HCl (Dilaudid) 0.25 mg IVPUSH Q2H PRN PRN Reason: Pain (severe 7-10) Ceftriaxone Sodium 1 gm/ (Sodium Chloride) 50 mls @ 100 mls/hr IV Q24H [facility] Last Admin: 10/10/19 15:07 Dose: 100 mls/hr Levothyroxine Sodium (Synthroid) 50 mcg PO Q24H [facility] Last Admin: 10/11/19 06:34 Dose: 50 mcg Lisinopril (Prinivil) 5 mg PO DAILY [facility] Lorazepam (Ativan) 0.5 mg IVPUSH Q4H PRN PRN Reason: Nausea/Vomiting Magnesium Hydroxide (Milk Of Magnesia) 30 ml PO Q12H PRN PRN Reason: Constipation Melatonin (Melatonin) 9 mg PO BEDTIME [facility] Last Admin: 10/10/19 21:00 Dose: 9 mg Metformin HCl (Glucophage) 500 mg PO BIDMEALS [facility] Last Admin: 10/11/19 08:29 Dose: 500 mg Metoprolol Succinate (Toprol Xl) 50 mg PO DAILY [facility] Last Admin: 10/11/19 08:34 Dose: 50 mg (Calcium Carbonate [ Calcium] 600 Mg)*Pom * 600 mg PO BIDMEALS [facility] Last Admin: 10/11/19 08:29 Dose: 600 mg (Glimepiride [ Glimepiride] 1 Mg)* Pom* 1 mg PO DAILY@0800 [facility] Last Admin: 10/11/19 08:28 Dose: 1 mg Ondansetron HCl (Zofran Odt) 4 mg PO Q6H PRN PRN Reason: Nausea able to take PO Ondansetron HCl (Zofran) 4 mg IV Q6H PRN PRN Reason: Nausea/Vomiting Oxycodone HCl (Oxycodone) 2.5 mg PO Q4H PRN PRN Reason: Pain Senna/Docusate Sodium (Senna Plus) 1 tab PO BID [facility] Last Admin: 10/11/19 08:33 Dose: 1 tab Sodium Chloride (Saline Flush) 10 ml FLUSH ASDIRECTED PRN PRN Reason: Keep Vein Open Last Admin: 10/10/19 08:27 Dose: 10 ml Sotalol HCl (Betapace) 80 mg PO BEDTIME [facility] Last Admin: 10/10/19 21:02 Dose: 80 mg Discontinued Medications Acetaminophen (Tylenol Extra Strength) 1,000 mg PO ONETIME ONE Stop: 10/10/19 09:19 Last Admin: 10/10/19 10:27 Dose: 1,000 mg Al Hydroxide/Mg Hydroxide (Mag-Al Plus) 30 ml PO ONETIME ONE Stop: 10/10/19 09:51 Last Admin: 10/10/19 09:51 Dose: 30 ml Cephalexin (Keflex) 500 mg PO ONETIME ONE Stop: 10/10/19 10:37 Last Admin: 10/10/19 10:59 Dose: 500 mg Furosemide (Lasix) 40 mg IVPUSH ONETIME ONE Stop: 10/11/19 11:41 Hydralazine HCl (Apresoline) 25 mg IVPUSH ONETIME ONE Stop: 10/10/19 08:48 Last Admin: 10/10/19 08:56 Dose: 25 mg Sodium Chloride (Normal Saline) 1,000 mls @ 1,000 mls/hr IV .BOLUS ONE Stop: 10/10/19 10:12 Last Admin: 10/10/19 09:19 Dose: 1,000 mls/hr Sodium Chloride (Normal Saline) 1,000 mls @ 100 mls/hr IV ASDIRECTED [facility] Last Admin: 10/10/19 09:45 Dose: 100 mls/hr Sodium Chloride (Normal Saline) 1,000 mls @ 100 mls/hr IV ASDIRECTED [facility] Last Admin: 10/11/19 06:34 Dose: 100 mls/hr Prochlorperazine Edisylate (Compazine) 5 mg IVPUSH ONETIME ONE Stop: 10/10/19 09:08 Last Admin: 10/10/19 09:10 Dose: 5 mg - Exam Quality Assessment: No: Supplemental Oxygen General: Alert, Oriented, Cooperative, No Acute Distress Neck: JVD Lungs: Normal Respiratory Effort, Decreased Breath Sounds (left lung base) Cardiovascular: Regular Rate, Regular Rhythm GI/Abdominal Exam: Soft, No Distention Extremities: No Pedal Edema Psy/Mental Status: Alert, Normal Affect Sepsis Event Note - Evaluation Sepsis Screening Result: No Definite Risk - Focused Exam Vital Signs: Vital Signs Temp Pulse Pulse Resp BP BP Pulse Ox 10/11/19 11:37 36.9 C 77 22 H 219/92 H 93 L 10/11/19 11:00 190/80 H 10/11/19 09:48 74 22 H 171/64 H 93 L 10/11/19 09:35 88 L 10/11/19 08:34 66 190/77 H 10/11/19 07:00 36.2 C 66 18 190/77 H 96 10/11/19 02:05 36.6 C 65 16 146/53 H 94 L Date Exam was Performed: 10/11/19 Time Exam was Performed: 13:14 - Problem List & Annotations (1) Acute cystitis without hematuria SNOMED Code(s): 29002663 Code(s): N30.00 - ACUTE CYSTITIS WITHOUT HEMATURIA Status: Acute Current Visit: Yes (2) Abdominal pain, generalized SNOMED Code(s): 662216007 Code(s): R10.84 - GENERALIZED ABDOMINAL PAIN Status: Acute Current Visit : Yes (3) Nausea & vomiting SNOMED Code(s): 34470384 Code(s): R11.2 - NAUSEA WITH VOMITING, UNSPECIFIED Status: Acute Current Visit: Yes Qualifiers: Vomiting type: unspecified Vomiting Intractability: non-intractable Qualified Code(s): R11.2 - Nausea with vomiting, unspecified (4) DM II (diabetes mellitus, type II), controlled SNOMED Code(s): 97683254, 181356592 Code(s): E11.9 - TYPE 2 DIABETES MELLITUS WITHOUT COMPLICATIONS Status: Chronic Current Visit: Yes Qualifiers: Diabetes mellitus extermination inspector insulin use: without extermination inspector use Diabetes mellitus complication status: with unspecified complications Qualified Code(s) : E11.8 - Type 2 diabetes mellitus with unspecified complications (5) HTN (hypertension) SNOMED Code(s): 98879696 Code(s): I10 - ESSENTIAL (PRIMARY) HYPERTENSION Status: Chronic Current Visit: Yes Qualifiers: Hypertension type: essential hypertension Qualified Code(s): I10 - Essential (primary) hypertension - Problem List Review Problem List Initiated/Reviewed/Updated: Yes - My Orders Last 24 Hours: My Active Orders 10/10/19 12:19 Resuscitation Status Routine 10/10/19 13:41 Patient Status [ADT] Routine Intake and Output [RC] QSHIFT Notify Provider Vital Signs [RC] ASDIRECTED Oxygen Therapy [RC] PRN Up With Assistance [RC] ASDIRECTED VTE/DVT Education [RC] Per Unit Routine Vital Signs [RC] Q4H Acetaminophen [Tylenol] 650 mg PO Q4H PRN HYDROmorphone [Dilaudid] 0.25 mg IVPUSH Q2H PRN LORazepam [Ativan] 0.5 mg IVPUSH Q4H PRN Magnesium Hydroxide [Milk of Magnesia] 30 ml PO Q12H PRN Ondansetron [Zofran ODT] 4 mg PO Q6H PRN Ondansetron [Zofran] 4 mg IV Q6H PRN oxyCODONE 2.5 mg PO Q4H PRN 10/10/19 14:30 cefTRIAXone [Rocephin] 1 gm Sodium Chloride 0.9% [Normal Saline] 50 ml IV Q24H 10/10/19 17:00 Calcium Carbonate [Calcium] 600 mg PO BIDMEALS metFORMIN [Glucophage] 500 mg PO BIDMEALS 10/10/19 21:00 Apixaban [Eliquis] 2.5 mg PO BID Docusate Sodium/Sennosides [Senna Plus] 1 tab PO BID Melatonin 9 mg PO BEDTIME Sotalol [Betapace] 80 mg PO BEDTIME 10/10/19 Lunch Consistent Carbohydrate Diet [DIET] 10/11/19 06:00 Levothyroxine [Synthroid] 50 mcg PO Q24H 10/11/19 07:00 PT Evaluation and Treatment [CONS] Routine 10/11/19 08:00 Glimepiride [Glimepiride] 1 mg PO DAILY@0800 10/11/19 09:00 Cyanocobalamin (Vitamin B12) [Vitamin B12] 1,000 mcg PO DAILY Metoprolol Succinate [Toprol XL] 50 mg PO DAILY 10/11/19 11:40 Convert IV to Saline Lock [OM.PC] Routine 10/11/19 11:45 lisinopriL [Prinivil] 5 mg PO DAILY 10/11/19 17:00 GLUCOSE POC LAB TO COLLECT [POC] BIDAC 10/12/19 08:00 GLUCOSE POC LAB TO COLLECT [POC] BIDAC 10/12/19 17:00 GLUCOSE POC LAB TO COLLECT [POC] BIDAC 10/13/19 08:00 GLUCOSE POC LAB TO COLLECT [POC] BIDAC 10/13/19 17:00 GLUCOSE POC LAB TO COLLECT [POC] BIDAC 10/14/19 08:00 GLUCOSE POC LAB TO COLLECT [POC] BIDAC 10/14/19 17:00 GLUCOSE POC LAB TO COLLECT [POC] BIDAC 10/15/19 08:00 GLUCOSE POC LAB TO COLLECT [POC] BIDAC - Plan Plan:: ASSESSMENT AND PLAN - Acute cystitis without hematuria-although this infection was asymptomatic I suspect that this is the cause for her accelerated hypertension, nausea and abdominal pain. Clinically feeling better. Urine culture with only mixed erich so far. -Ceftriaxone -Follow-up urine culture -Symptomatic management of abdominal pain and nausea -Saline lock IV Accelerated hypertension-blood pressure was stable yesterday afternoon but is more elevated again this morning. I suspect there may be a mild component of volume overload but with consistently high readings at her assisted living I think she would benefit from an additional agent for afterload reduction. -Furosemide x1 this morning -Start lisinopril 5 mg -Continue metoprolol Type 2 diabetes mellitus-well controlled by history. -Continue home medications Paroxysmal atrial fibrillation-currently in sinus rhythm. -Continue rate control and anticoagulation Maintenance issues - - DVT prophylaxis -apixaban - GI prophylaxis -not indicated - Nutrition -consistent carbohydrates Admission justification -patient will be referred observation status for initiation of antibiotics and symptom management. Disposition -I would anticipate discharge home after the hospital stay Primary care physician -Dr. Payam Tolbert M.D.
[2019-10-11] MEDS: Lisinopril 5 MG Tab PO SCH (12:36)
[2019-10-11] MEDS: cefTRIAXone 1 GM in Sodium Chloride 0.9% 50 ML IV SCH (14:15)
[2019-10-11] MEDS: Melatonin 3 MG Tab PO SCH (20:10)
[2019-10-11] MEDS: SOTALOL 80 MG PO SCH (20:12)
[2019-10-12] MEDS: Levothyroxine 50 MCG Tab*POM PO SCH (05:48)
[2019-10-12] MEDS: METFORMIN 500 MG PO SCH (08:04)
[2019-10-12] MEDS: CALCIUM CARBONATE 600 MG PO SCH (08:04)
[2019-10-12] MEDS: APIXABAN 2.5 MG PO SCH (08:05)
[2019-10-12] MEDS: Lisinopril 5 MG Tab PO SCH (08:07)
[2019-10-12] MEDS: Metoprolol Succinate 50 MG Tab.ER*POM PO SCH (08:07)
[2019-10-12] MEDS: CYANOCOBALAMIN 1000 MCG PO SCH (08:07)
--- NOTE | 2019-10-12 13:23 | PCM.DCSUM1 ---
Discharge Summary - Hospital Course Brief History: 89-year-old female with history of paroxysmal atrial fibrillation , essential hypertension who presented with headache, nausea and generalized abdominal pain. She was admitted for observation with possible urinary tract infection and labile blood pressure. Diagnosis: Stroke: No - Discharge Data Discharge Date: 10/12/19 Discharge Disposition: Home, W Home Health Agency 06 Condition: Fair - Referral to Home Health Date of Face to Face Encounter: 10/12/19 Reason for Homebound Status: acute on chronic weakness Primary Care Physician: Payam Calloway MD Skilled Need: Physical therapy - Discharge Diagnosis/Problem(s) (1) Acute cystitis without hematuria SNOMED Code(s): 30794712 ICD Code: N30.00 - ACUTE CYSTITIS WITHOUT HEMATURIA Status: Ruled-out Current Visit: Yes (2) Abdominal pain, generalized SNOMED Code(s): 634036554 ICD Code: R10.84 - GENERALIZED ABDOMINAL PAIN Status: Acute Current Visit : Yes (3) Nausea & vomiting SNOMED Code(s): 59793920 ICD Code: R11.2 - NAUSEA WITH VOMITING, UNSPECIFIED Status: Acute Current Visit: Yes Qualifiers: Vomiting type: unspecified Vomiting Intractability: non-intractable Qualified Code(s): R11.2 - Nausea with vomiting, unspecified (4) DM II (diabetes mellitus, type II), controlled SNOMED Code(s): 32144843, 407171821 ICD Code: E11.9 - TYPE 2 DIABETES MELLITUS WITHOUT COMPLICATIONS Status: Chronic Current Visit: Yes Qualifiers: Diabetes mellitus shelter insulin use: without termite exterminator use Diabetes mellitus complication status: with unspecified complications Qualified Code(s) : E11.8 - Type 2 diabetes mellitus with unspecified complications (5) HTN (hypertension) SNOMED Code(s): 59468545 ICD Code: I10 - ESSENTIAL (PRIMARY) HYPERTENSION Status: Acute Current Visit: Yes Qualifiers: Hypertension type: essential hypertension Qualified Code(s): I10 - Essential (primary) hypertension - Patient Summary/Data Consults: Consultations 10/11/19 07:00 PT Evaluation and Treatment [CONS] Routine Please Evaluate and Treat. PT Reason for Consult: Strengthening This query below is only for informational purposes and is not editable. Hospital Course: Cammy presented to the emergency room with headache, eye pain, left hand numbness as well as nausea and generalized abdominal pain. Work-up in the emergency room was fairly reassuring as far as laboratory studies. Urinalysis was possibly suggestive of infection. Initially her blood pressure was quite high in the 200 range. She was given a dose of hydralazine in the emergency room and then her blood pressure dropped significantly. She received some IV fluids with improvement in her blood pressure. Head CT was unremarkable for acute stroke. She was admitted to the hospital for initiation of antibiotics as well as blood pressure monitoring. Overnight following admission her blood pressure was acceptable but by the next morning it had risen to near 200 again. Symptomatically she was feeling better with improvement in her headache and resolution of her nausea. With her continued and significant blood pressure elevation I did elect to start her on a low-dose of lisinopril. She was displaying some evidence for mild volume overload after volume resuscitation the day before. I noted JVD as well as some diminished breath sounds at the bases of her lungs. She received a single dose of furosemide in the morning after admission. Her urine culture was growing mixed erich at 1 day but we did elect to continue antibiotics. Over the next 24 hours we saw improvement in her blood pressure. She had a good response to the diuresis. Her shortness of breath improved and her orthopnea resolved. Systolic blood pressures have been between 150 and 160. She is tolerating the lisinopril well after a couple of doses with only some very mild dizziness. We did check some orthostatic blood pressures which were unremarkable. She has not had any fevers. Her abdominal pain has resolved. Her nausea has resolved. Her urine culture continues to show mixed erich at day 2 so antibiotics will be discontinued. The exact cause for her symptoms is not entirely clear. I do not think I can attribute it all to accelerated hypertension. Viral illness is a possibility. We did rule out urinary tract infection. Clinically she is doing quite well and is safe for discharged home. She was interested in some home care to provide physical therapy. We did add the lisinopril to her home medication list. This may need some further titration after hospital discharge and she does have follow-up scheduled in just over 1 week. - Patient Instructions Diet: Regular Diet as Tolerated Activity: As Tolerated Showering/Bathing: May Shower Notify Provider of: Fever, Increased Pain, Nausea and/or Vomiting Other/Special Instructions: 1. You were in the hospital for management of headache, nausea and accelerated hypertension. Initially we thought maybe there was a bladder infection but your urine culture did not grow a specific bacteria. We did notice that your blood pressure was persistently elevated and did start a low-dose of lisinopril. Your blood pressure has been under better control with this medication though it may need some adjustment down the road. We did not find any definite evidence for stroke, infection or definite cause for your presenting symptoms but they have resolved with conservative therapy. 2. Continue your usual home medications as previously prescribed. 3. To help with sleep I recommend that you take 1000 mg of acetaminophen and 10 mg of melatonin at bedtime. 4. Follow up with Dr. Payam Calloway as scheduled in early October. 5. Please check blood pressures 3 times weekly on Wednesday, Wednesday and Wednesday and bring these readings to the follow-up appointment with Dr. Calloway. - Discharge Plan *PRESCRIPTION DRUG MONITORING PROGRAM REVIEWED*: Not Applicable *COPY OF PRESCRIPTION DRUG MONITORING REPORT IN PATIENT DONNA: Not Applicable Prescriptions/Med Rec: Acetaminophen [Tylenol Extra Strength] 1,000 mg PO BEDTIME #100 tab lisinopriL [Prinivil] 5 mg PO DAILY #30 tablet Melatonin 10 mg PO BEDTIME #30 tablet Home Medications: Home Meds Abaloparatide [Tymlos] 80 mcg SQ DAILY 10/10/19 [History] Acetaminophen 650 mg PO Q6H PRN 10/10/19 [History] Apixaban [Eliquis] 2.5 mg PO BID 10/10/19 [History] Calcium Carbonate [Calcium] 600 mg PO BID 10/10/19 [History] Cholecalciferol (Vitamin D3) [Vitamin D3] 2,000 unit PO DAILY 10/10/19 [History] Cyanocobalamin (Vitamin B-12) [Vitamin B-12] 1,000 mcg PO DAILY 10/10/19 [ History] Ergocalciferol (Vitamin D2) [Vitamin D2] 1 tab PO ASDIRECTED 10/10/19 [History] Furosemide [Lasix] 20 mg PO ASDIRECTED PRN 10/10/19 [History] Glimepiride 1 mg PO DAILY 10/10/19 [History] Levothyroxine [Synthroid] 50 mcg PO ACBREAKFAST 10/10/19 [History] Metoprolol Succinate 50 mg PO DAILY 10/10/19 [History] Ondansetron [Ondansetron ODT] 4 mg PO Q8H PRN 10/10/19 [History] Sennosides/Docusate Sodium [Senna-S] 1 tab PO BID 10/10/19 [History] Sotalol [Betapace] 80 mg PO DAILY 10/10/19 [History] Ubidecarenone [Coenzyme Q10] 2 tab PO DAILY 10/10/19 [History] metFORMIN [Glucophage] 500 mg PO BIDMEALS 10/10/19 [History] oxyCODONE 2.5 mg PO Q4H PRN 10/10/19 [History] Acetaminophen [Tylenol Extra Strength] 1,000 mg PO BEDTIME #100 tab 10/12/19 [Rx ] Melatonin 10 mg PO BEDTIME #30 tablet 10/12/19 [Rx] lisinopriL [Prinivil] 5 mg PO DAILY #30 tablet 10/12/19 [Rx] Oxygen Therapy Mode: Room Air Patient Handouts: Hypertension, Adult, [id number], Lisinopril tablets Referrals: Payam Calloway MD [Primary Care Provider] - 10/23/19 3:40 pm (Dr. Calloway will make home vist on October 22. ) - Discharge Summary/Plan Comment DC Time >30 min.: Yes (35-coordinating home care) - Patient Data Vitals - Most Recent: Last Vital Signs Temp 36.2 C 10/12/19 10:34 Pulse 61 10/12/19 10:34 Resp 18 10/12/19 10:34 BP 153/72 H 10/12/19 10:34 Pulse Ox 94 L 10/12/19 11:11 Orthostatic Blood Pressure [ 171/60 Standing] Orthostatic Blood Pressure [ 170/65 Sitting] Orthostatic Blood Pressure [ 171/57 Supine] Weight - Most Recent: 58.06 kg I&O - Last 24 hours: Intake & Output 10/11/19 10/12/19 10/12/19 22:59 06:59 14:59 Intake Total 500 220 Output Total 1999 550 Balance -1500 -550 220 GRANT Results - Last 24 hrs: Microbiology 10/10/19 10:39 Urine Culture - Final Urine, Clean Catch MIXED POSITIVE ERICH DAY 2 Med Orders - Current: Current Medications Acetaminophen (Tylenol) 650 mg PO Q4H PRN PRN Reason: Pain (Mild 1-3)/fever Apixaban (Eliquis) 2.5 mg PO BID [facility] Last Admin: 10/12/19 08:05 Dose: 2.5 mg Cyanocobalamin (Vitamin B12) 1,000 mcg PO DAILY [facility] Last Admin: 10/12/19 08:07 Dose: 1,000 mcg Hydromorphone HCl (Dilaudid) 0.25 mg IVPUSH Q2H PRN PRN Reason: Pain (severe 7-10) Ceftriaxone Sodium 1 gm/ (Sodium Chloride) 50 mls @ 100 mls/hr IV Q24H [facility] Last Admin: 10/11/19 14:15 Dose: 100 mls/hr Levothyroxine Sodium (Synthroid) 50 mcg PO Q24H [facility] Last Admin: 10/12/19 05:48 Dose: 50 mcg Lisinopril (Prinivil) 5 mg PO DAILY [facility] Last Admin: 10/12/19 08:07 Dose: 5 mg Lorazepam (Ativan) 0.5 mg IVPUSH Q4H PRN PRN Reason: Nausea/Vomiting Magnesium Hydroxide (Milk Of Magnesia) 30 ml PO Q12H PRN PRN Reason: Constipation Melatonin (Melatonin) 9 mg PO BEDTIME [facility] Last Admin: 10/11/19 20:10 Dose: 9 mg Metformin HCl (Glucophage) 500 mg PO BIDMEALS [facility] Last Admin: 10/12/19 08:04 Dose: 500 mg Metoprolol Succinate (Toprol Xl) 50 mg PO DAILY [facility] Last Admin: 10/12/19 08:07 Dose: 50 mg (Calcium Carbonate [ Calcium] 600 Mg)*Pom * 600 mg PO BIDMEALS [facility] Last Admin: 10/12/19 08:04 Dose: 600 mg (Glimepiride [ Glimepiride] 1 Mg)* Pom* 1 mg PO DAILY@0800 [facility] Last Admin: 10/12/19 08:05 Dose: 1 mg Ondansetron HCl (Zofran Odt) 4 mg PO Q6H PRN PRN Reason: Nausea able to take PO Ondansetron HCl (Zofran) 4 mg IV Q6H PRN PRN Reason: Nausea/Vomiting Oxycodone HCl (Oxycodone) 2.5 mg PO Q4H PRN PRN Reason: Pain Senna/Docusate Sodium (Senna Plus) 1 tab PO BID [facility] Last Admin: 10/12/19 08:05 Dose: 1 tab Sodium Chloride (Saline Flush) 10 ml FLUSH ASDIRECTED PRN PRN Reason: Keep Vein Open Last Admin: 10/10/19 08:27 Dose: 10 ml Sotalol HCl (Betapace) 80 mg PO BEDTIME [facility] Last Admin: 10/11/19 20:12 Dose: 80 mg Discontinued Medications Acetaminophen (Tylenol Extra Strength) 1,000 mg PO ONETIME ONE Stop: 10/10/19 09:19 Last Admin: 10/10/19 10:27 Dose: 1,000 mg Al Hydroxide/Mg Hydroxide (Mag-Al Plus) 30 ml PO ONETIME ONE Stop: 10/10/19 09:51 Last Admin: 10/10/19 09:51 Dose: 30 ml Cephalexin (Keflex) 500 mg PO ONETIME ONE Stop: 10/10/19 10:37 Last Admin: 10/10/19 10:59 Dose: 500 mg Furosemide (Lasix) 40 mg IVPUSH ONETIME ONE Stop: 10/11/19 11:41 Last Admin: 10/11/19 12:36 Dose: 40 mg Hydralazine HCl (Apresoline) 25 mg IVPUSH ONETIME ONE Stop: 10/10/19 08:48 Last Admin: 10/10/19 08:56 Dose: 25 mg Sodium Chloride (Normal Saline) 1,000 mls @ 1,000 mls/hr IV .BOLUS ONE Stop: 10/10/19 10:12 Last Admin: 10/10/19 09:19 Dose: 1,000 mls/hr Sodium Chloride (Normal Saline) 1,000 mls @ 100 mls/hr IV ASDIRECTED [facility] Last Admin: 10/10/19 09:45 Dose: 100 mls/hr Sodium Chloride (Normal Saline) 1,000 mls @ 100 mls/hr IV ASDIRECTED [facility] Last Admin: 10/11/19 06:34 Dose: 100 mls/hr Prochlorperazine Edisylate (Compazine) 5 mg IVPUSH ONETIME ONE Stop: 10/10/19 09:08 Last Admin: 10/10/19 09:10 Dose: 5 mg
[2019-10-12] MEDS: cefTRIAXone 1 GM in Sodium Chloride 0.9% 50 ML IV SCH (14:02)
== END 2019-10-12 16:16 | disposition home health service (06) ==
LOC: JP.ED 08:05 → UNDOADMIN 12:14 → JP.MS 12:14
PROVIDERS: ADMIT Internal Medicine; ATTEND Internal Medicine
DX: R10.84 Generalized abdominal pain (principal); R11.2 Nausea with vomiting, unspecified; I10 Essential (primary) hypertension; E11.8 Type 2 diabetes mellitus with unspecified complications; I48.0 Paroxysmal atrial fibrillation; E03.9 Hypothyroidism, unspecified; R51 Headache; Z66 Do not resuscitate; Z88.5 Allergy status to narcotic agent; Z79.84 Long term (current) use of oral hypoglycemic drugs; Z88.8 Allergy status to other drugs, medicaments and biological substances; Z79.899 Other long term (current) drug therapy; Z79.01 Long term (current) use of anticoagulants
CPT/HCPCS: 36415; 70450; 80048; 81001; 82962; 84484; 85027; 85610; 87086; 93005; 93010; 97110; 97161; 99284; A9270; J0360; J0696; J0780; J1940; J7030; J7050; 96361; 96365; 96366; 96374; 96375; 99217; 99218; 99225; 99285-25; G0378

== ENCOUNTER 2019-10-18 06:00 | Emergency (ER) | payer MEDICARE, BC ==
[2019-10-18] MEDS ORDERED: Prochlorperazine 10 MG/2 ML SDV IVPUSH ONE (06:29)
[2019-10-18] MEDS ORDERED: Metoprolol Succinate 50 MG Tab.ER PO ONE (06:30)
[2019-10-18] MEDS ORDERED: Lisinopril 5 MG Tab PO ONE (06:30)
--- NOTE | 2019-10-18 06:36 | EDM.PDOC ---
<OfficerAltaf - Last Filed: 10/18/19 06:32> ED HPI GENERAL MEDICAL PROBLEM - General Chief Complaint: General Stated Complaint: MEDICAL VIA [facility] Time Seen by Provider: 10/18/19 06:18 Source of Information: Reports: Patient, Old Records, RN Notes Reviewed History Limitations: Reports: No Limitations - History of Present Illness INITIAL COMMENTS - FREE TEXT/NARRATIVE: 89-year-old female presents emergency department today via EMS services for complaint of headache, nausea, abdominal pain and elevated blood pressure, she was just evaluated in the emergency department with hospitalization and discharged on 420 approximately 9 days ago for the same complaint. Work-up at the time included blood work which is unremarkable his head CT scan also unremarkable admission to the hospital her lisinopril was restarted the blood pressures did return to normal she did have an abnormal response to hydroxyzine again blood pressures in the 220 range dropped to the 70 systolic range. She states about 1:00 this morning she started feeling difficult again dizziness difficulty with blood pressure EMS services were called this morning for transport denies any shortness of breath chest pain. - Related Data Allergies Allergy/AdvReac Type Severity Reaction Status Date / Time atorvastatin Allergy Dizziness Verified 10/10/19 08:27 morphine Allergy Hallucinati Verified 10/10/19 08:26 ons Home Meds: Home Meds Abaloparatide [Tymlos] 80 mcg SQ DAILY 10/10/19 [History] Acetaminophen 650 mg PO Q6H PRN 10/10/19 [History] Apixaban [Eliquis] 2.5 mg PO BID 10/10/19 [History] Calcium Carbonate [Calcium] 600 mg PO BID 10/10/19 [History] Cholecalciferol (Vitamin D3) [Vitamin D3] 2,000 unit PO DAILY 10/10/19 [History] Cyanocobalamin (Vitamin B-12) [Vitamin B-12] 1,000 mcg PO DAILY 10/10/19 [ History] Ergocalciferol (Vitamin D2) [Vitamin D2] 1 tab PO ASDIRECTED 10/10/19 [History] Furosemide [Lasix] 20 mg PO ASDIRECTED PRN 10/10/19 [History] Glimepiride 1 mg PO DAILY 10/10/19 [History] Levothyroxine [Synthroid] 50 mcg PO ACBREAKFAST 10/10/19 [History] Metoprolol Succinate 50 mg PO DAILY 10/10/19 [History] Ondansetron [Ondansetron ODT] 4 mg PO Q8H PRN 10/10/19 [History] Sennosides/Docusate Sodium [Senna-S] 1 tab PO BID 10/10/19 [History] Sotalol [Betapace] 80 mg PO DAILY 10/10/19 [History] Ubidecarenone [Coenzyme Q10] 2 tab PO DAILY 10/10/19 [History] metFORMIN [Glucophage] 500 mg PO BIDMEALS 10/10/19 [History] oxyCODONE 2.5 mg PO Q4H PRN 10/10/19 [History] Acetaminophen [Tylenol Extra Strength] 1,000 mg PO BEDTIME #100 tab 10/12/19 [Rx ] Melatonin 10 mg PO BEDTIME #30 tablet 10/12/19 [Rx] lisinopriL [Prinivil] 5 mg PO DAILY #30 tablet 10/12/19 [Rx] amLODIPine [Norvasc] 5 mg PO DAILY #30 tab 10/18/19 [Rx] Past Medical History HEENT History: Reports: Hard of Hearing, Impaired Vision Cardiovascular History: Reports: Afib (Paroxysmal), CAD, ID Respiratory History: Reports: Other (See Below) Other Respiratory History: Acute respiratory faiure [employer] History: Reports: Musculoskeletal History: Reports: Fracture, Osteoporosis Neurological History: Reports: TIA Other Neuro History: Cerebrovasulaar disease Endocrine/Metabolic History: Reports: Diabetes, Type II, Hypothyroidism - Infectious Disease History Infectious Disease History: Reports: Chicken Pox, Measles, Mumps Social & Family History - Family History Family Medical History: Noncontributory - Tobacco Use Smoking Status *Q: Never Smoker - Caffeine Use Caffeine Use: Reports: Coffee ED ROS GENERAL - Review of Systems Review Of Systems: See Below Constitutional: Reports: No Symptoms HEENT: Reports: Vertigo Respiratory: Reports: No Symptoms Cardiovascular: Reports: No Symptoms GI/Abdominal: Reports: Abdominal Pain, Nausea. Denies: Vomiting : Reports: No Symptoms Musculoskeletal: Reports: No Symptoms Skin: Reports: No Symptoms Neurological: Reports: Dizziness, Headache ED EXAM, GENERAL - Physical Exam Exam: See Below Exam Limited By: No Limitations General Appearance: Alert, WD/WN, No Apparent Distress Eye Exam: Bilateral Eye: Normal Inspection Throat/Mouth: No Airway Compromise Neck: Normal Inspection, Supple, Non-Tender, Full Range of Motion Respiratory/Chest: No Respiratory Distress, Lungs Clear, Normal Breath Sounds, No Accessory Muscle Use, Chest Non-Tender Cardiovascular: Regular Rate, Rhythm, No Murmur GI/Abdominal: Normal Bowel Sounds, Soft, No Organomegaly, No Mass, Distended, Tender (Generalized) Extremities: Normal Inspection, No Pedal Edema Course - Vital Signs Last Recorded V/S: Last Vital Signs Temp 35.9 C L 10/18/19 06:16 Pulse 63 10/18/19 10:50 Resp 14 10/18/19 09:37 BP 222/96 H 10/18/19 10:50 Pulse Ox 93 L 10/18/19 09:37 - Orders/Labs/Meds Orders: Active Orders 24 hr Category Date Time Status Sotalol [Betapace] Med 10/18/19 10:45 Active 80 mg PO BID Medication Orders Sotalol HCl (Betapace) 80 mg PO BID [facility] Last Admin: 10/18/19 10:50 Dose: 80 mg Labs: Laboratory Tests 10/18/19 10/18/19 10/18/19 Range/Units 06:28 06:31 06:31 WBC 6.3 (4.5-11.0) K/uL RBC 4.73 (3.30-5.50) M/uL Hgb 14.4 (12.0-15.0) g/dL Hct 44.2 (36.0-48.0) % MCV 93 (80-98) fL MCH 30 (27-31) pg MCHC 33 (32-36) % Plt Count 269 (150-400) K/uL Neut % (Auto) 77 H (36-66) % Lymph % (Auto) 14 L (24-44) % Bennett % (Auto) 6 (2-6) % Eos % (Auto) 3 (2-4) % Baso % (Auto) 1 (0-1) % Sodium 134 L (140-148) mmol/L Potassium 4.5 (3.6-5.2) mmol/L Chloride 98 L (100-108) mmol/L Carbon Dioxide 27 (21-32) mmol/L Anion Gap 13.5 (5.0-14.0) mmol/L BUN 16 (7-18) mg/dL Creatinine 1.0 (0.6-1.0) mg/dL Est Cr Clr Drug Dosing 32.79 mL/min Estimated GFR (MDRD) 52 L (>60) Glucose 225 H (74-106) mg/dL Lactic Acid 1.3 (0.4-2.0) mmol/L Calcium 10.2 H D (8.5-10.1) mg/dL Total Bilirubin 0.5 (0.2-1.0) mg/dL AST 19 (15-37) U/L ALT 28 (12-78) U/L Alkaline Phosphatase 129 H (46-116) U/L Troponin I < 0.017 (0.000-0.056) ng/mL Total Protein 7.2 (6.4-8.2) g/dL Albumin 4.0 (3.4-5.0) g/dL Globulin 3.2 (2.3-3.5) g/dL Albumin/Globulin Ratio 1.3 (1.2-2.2) Lipase 129 (73-393) U/L Urine Color (YELLOW) Urine Appearance (CLEAR) Urine pH (5.0-8.0) Ur Specific Harrod (1.008-1.030) Urine Protein (NEGATIVE) mg/dL Urine Glucose (UA) (NEGATIVE) mg/dL Urine Ketones (NEGATIVE) mg/dL Urine Occult Blood (NEGATIVE) Urine Nitrite (NEGATIVE) Urine Bilirubin (NEGATIVE) Urine Urobilinogen (0.2-1.0) EU/dL Ur Leukocyte Esterase (NEGATIVE) Urine RBC (0-5) Urine WBC (0-5) Ur Epithelial Cells Amorphous Sediment Urine Bacteria Urine Mucus 10/18/19 Range/Units 09:22 WBC (4.5-11.0) K/uL RBC (3.30-5.50) M/uL Hgb (12.0-15.0) g/dL Hct (36.0-48.0) % MCV (80-98) fL MCH (27-31) pg MCHC (32-36) % Plt Count (150-400) K/uL Neut % (Auto) (36-66) % Lymph % (Auto) (24-44) % Bennett % (Auto) (2-6) % Eos % (Auto) (2-4) % Baso % (Auto) (0-1) % Sodium (140-148) mmol/L Potassium (3.6-5.2) mmol/L Chloride (100-108) mmol/L Carbon Dioxide (21-32) mmol/L Anion Gap (5.0-14.0) mmol/L BUN (7-18) mg/dL Creatinine (0.6-1.0) mg/dL Est Cr Clr Drug Dosing mL/min Estimated GFR (MDRD) (>60) Glucose (74-106) mg/dL Lactic Acid (0.4-2.0) mmol/L Calcium (8.5-10.1) mg/dL Total Bilirubin (0.2-1.0) mg/dL AST (15-37) U/L ALT (12-78) U/L Alkaline Phosphatase (46-116) U/L Troponin I (0.000-0.056) ng/mL Total Protein (6.4-8.2) g/dL Albumin (3.4-5.0) g/dL Globulin (2.3-3.5) g/dL Albumin/Globulin Ratio (1.2-2.2) Lipase (73-393) U/L Urine Color Yellow (YELLOW) Urine Appearance Clear (CLEAR) Urine pH 8.0 (5.0-8.0) Ur Specific Harrod 1.020 (1.008-1.030) Urine Protein Negative (NEGATIVE) mg/dL Urine Glucose (UA) 100 H (NEGATIVE) mg/dL Urine Ketones Trace H (NEGATIVE) mg/dL Urine Occult Blood Negative (NEGATIVE) Urine Nitrite Negative (NEGATIVE) Urine Bilirubin Negative (NEGATIVE) Urine Urobilinogen 0.2 (0.2-1.0) EU/dL Ur Leukocyte Esterase Negative (NEGATIVE) Urine RBC 0-5 (0-5) Urine WBC Not seen (0-5) Ur Epithelial Cells Not seen Amorphous Sediment Not seen Urine Bacteria Not seen Urine Mucus Not seen Meds: Medications Generic Name Dose Route Start Last Admin Trade Name Freq PRN Reason Stop Dose Admin Sotalol HCl 80 mg 10/18/19 10:45 10/18/19 10:50 Betapace PO 80 mg BID BUCK Administration Discontinued Medications Generic Name Dose Route Start Last Admin Trade Name Freq PRN Reason Stop Dose Admin Amlodipine Besylate 5 mg 10/18/19 10:13 10/18/19 10:19 Norvasc PO 04/29/20 10:14 5 mg ONETIME ONE Administration Apixaban 2.5 mg 10/18/19 10:31 10/18/19 10:46 Eliquis PO 10/18/19 10:32 2.5 mg ONETIME ONE Administration Furosemide 20 mg 10/18/19 10:32 10/18/19 10:48 Lasix PO 10/18/19 10:33 20 mg ONETIME ONE Administration Glimepiride 1 mg 10/18/19 10:32 10/18/19 10:55 Amaryl PO 10/18/19 10:33 1 mg NOW STA Administration Hydralazine HCl 10 mg 10/18/19 07:20 10/18/19 07:37 Apresoline PO 10/18/19 07:21 10 mg NOW STA Administration Hydralazine HCl 10 mg 10/18/19 08:51 10/18/19 08:58 Apresoline PO 10/18/19 08:52 10 mg NOW STA Administration Levothyroxine Sodium 50 mcg 10/18/19 10:33 10/18/19 10:47 Synthroid PO 10/18/19 10:34 50 mcg NOW STA Administration Lisinopril 5 mg 10/18/19 06:30 10/18/19 06:36 Prinivil PO 10/18/19 06:31 5 mg ONETIME ONE Administration Metformin HCl 500 mg 10/18/19 10:34 10/18/19 10:50 Glucophage PO 10/18/19 10:35 500 mg ONETIME ONE Administration Metoprolol Succinate 50 mg 10/18/19 06:30 10/18/19 06:36 Toprol Xl PO 10/18/19 06:31 50 mg ONETIME ONE Administration Prochlorperazine Edisylate 5 mg 10/18/19 06:29 10/18/19 06:36 Compazine IVPUSH 10/18/19 06:30 5 mg ONETIME ONE Administration Departure - Departure Disposition: Home, Self-Care 01 Clinical Impression: HTN (hypertension) Qualifiers: Hypertension type: essential hypertension Qualified Code(s): I10 - Essential ( primary) hypertension - Discharge Information Prescriptions: amLODIPine [Norvasc] 5 mg PO DAILY #30 tab Instructions: Hypertension, Adult, [id number] Referrals: PCP,None [Primary Care Provider] - Forms: ED Department Discharge Additional Instructions: Add amlodipine 5 mg every morning starting tomorrow to your current medications. F/U with your provider on Wednesday before the end of the day for recheck. Return here for severe LÓPEZ, chest pain, or stroke-like symptoms. Sepsis Event Note - Evaluation Sepsis Screening Result: No Definite Risk - Focused Exam Vital Signs: Vital Signs Temp Pulse Pulse Resp BP BP Pulse Ox 10/18/19 10:50 63 222/96 H 10/18/19 10:39 64 199/93 H 10/18/19 10:19 206/89 H 10/18/19 09:57 61 210/98 H 10/18/19 09:37 60 14 219/94 H 93 L 10/18/19 09:22 62 17 224/93 H 92 L 10/18/19 09:05 61 16 223/87 H 92 L 10/18/19 08:58 199/96 H 10/18/19 08:50 65 16 199/96 H 93 L 10/18/19 08:35 70 13 198/87 H 93 L 10/18/19 08:21 61 13 190/83 H 92 L 10/18/19 07:37 220/110 H 10/18/19 07:05 65 14 220/101 H 95 10/18/19 06:36 64 218/103 H 10/18/19 06:35 63 14 222/94 H 93 L 10/18/19 06:22 63 12 218/103 H 95 10/18/19 06:16 35.9 C L 64 12 228/107 H 94 L Date Exam was Performed: 10/18/19 Time Exam was Performed: 06:32 - My Orders Last 24 Hours: My Active Orders 10/18/19 10:45 Sotalol [Betapace] 80 mg PO BID - Assessment/Plan Last 24 Hours: My Active Orders 10/18/19 10:45 Sotalol [Betapace] 80 mg PO BID <David Holt - Last Filed: 10/18/19 11:25> Course - Re-Assessments/Exams Free Text/Narrative Re-Assessment/Exam: 10/18/19 08:56 BP is down about 20+ pts after hydralazine 10 mg po, feels better with this, not quite normal. Will give another oral dose of 10 mg and recheck in 45 min. Free Text/Narrative Re-Assessment/Exam: 10/18/19 11:23 No LÓPEZ, chest pain, SOB, or stroke-like sx's. Will send home on amlodipine to f/ u with her primary as outpatient. Departure - Departure Time of Disposition: 11:35 Condition: Fair - Discharge Information *PRESCRIPTION DRUG MONITORING PROGRAM REVIEWED*: Not Applicable *COPY OF PRESCRIPTION DRUG MONITORING REPORT IN PATIENT DONNA: Not Applicable Sepsis Event Note - Focused Exam Date Exam was Performed: 10/18/19 Time Exam was Performed: 11:23 - My Orders Last 24 Hours: My Active Orders 10/18/19 10:45 Sotalol [Betapace] 80 mg PO BID - Assessment/Plan Last 24 Hours: My Active Orders 10/18/19 10:45 Sotalol [Betapace] 80 mg PO BID
[2019-10-18] MEDS ORDERED: hydrALAZINE 10 MG Tab PO STA ×2 (07:20→08:51)
[2019-10-18] MEDS ORDERED: amLODIPine 5 MG Tab PO ONE (10:13)
[2019-10-18] MEDS ORDERED: Apixaban 2.5 MG Tab PO ONE (10:31)
[2019-10-18] MEDS ORDERED: Glimepiride 2 MG Tab PO STA (10:32)
[2019-10-18] MEDS ORDERED: Furosemide 20 MG Tab PO ONE (10:32)
[2019-10-18] MEDS ORDERED: Levothyroxine 50 MCG Tab PO STA (10:33)
[2019-10-18] MEDS ORDERED: metFORMIN 500 MG Tab PO ONE (10:34)
[2019-10-18] MEDS ORDERED: Sotalol 80 MG Tab PO SCH (10:45)
--- NOTE | 2019-10-18 10:50 | CR ---
Abdomen 1V Upright CLINICAL HISTORY: Pain FINDINGS: No free air is identified. Small intestinal configuration is nonacute. Patient has a small left effusion. There is moderate fecal retention. There has been previous abdominal surgery. IMPRESSION: Small left pleural effusion Moderate fecal retention Nonacute intestinal gas pattern
== END 2019-10-18 11:45 | disposition home or self-care (01) ==
LOC: JP.ED 06:00
DX: I10 Essential (primary) hypertension (principal); I25.10 Atherosclerotic heart disease of native coronary artery without angina pectoris; I25.2 Old myocardial infarction; I48.0 Paroxysmal atrial fibrillation; E11.9 Type 2 diabetes mellitus without complications; E03.9 Hypothyroidism, unspecified; Z86.73 Personal history of transient ischemic attack (TIA), and cerebral infarction without residual deficits; Z88.8 Allergy status to other drugs, medicaments and biological substances; Z88.5 Allergy status to narcotic agent; Z79.899 Other long term (current) drug therapy; Z79.84 Long term (current) use of oral hypoglycemic drugs; Z79.01 Long term (current) use of anticoagulants
CPT/HCPCS: 36415; 74018; 74018-26; 80053; 81001; 83605; 83690; 84484; 85025; 96374; 99284; 99284-25; A9270-GY; J0780

== ENCOUNTER 2020-09-20 12:34 | Emergency (ER) | payer MEDICARE, BC ==
[2020-09-20] MEDS ORDERED: Acetaminophen 500 MG Tab PO ONE (13:04)
[2020-09-20] MEDS ORDERED: Bisacodyl 10 MG Supp RECTAL ONE (13:04)
[2020-09-20] MEDS ORDERED: Polyethylene Glycol 3350 Powder 17 GM Packet PO ONE (13:04)
--- NOTE | 2020-09-20 13:09 | EDM.PDOC ---
ED HPI GENERAL MEDICAL PROBLEM - General Chief Complaint: Abdominal Pain Stated Complaint: [facility] Time Seen by Provider: 09/20/20 13:04 Source of Information: Reports: Patient, EMS, Family, Old Records, RN History Limitations: Reports: No Limitations - History of Present Illness INITIAL COMMENTS - FREE TEXT/NARRATIVE: 89 yo female from a local assisted living facility presents via EMS for epigastric/xyphoid pain. She was seen in the clinic yesterday for this same thing and was felt to have constipation. She had an unwitnessed BM this morning for the first time in a week per daughter. Vitals stable per EMS en route to the ER. The pain she reports now has been present for about a month. Onset: Gradual Duration: Week(s):, Constant Location: Reports: Abdomen Quality: Reports: Ache Severity: Mild Improves with: Reports: Rest Worsens with: Reports: Breathing, Other (straining at stool) Context: Reports: Other (See HPI) Associated Symptoms: Reports: Chest Pain (xyphoid area). Denies: Fever/Chills, Nausea/Vomiting, Shortness of Breath Treatments PER DIEM: Reports: Other (see below) (none) Upper Abdomen Pain Score (Numeric/FACES): 10 - Related Data Allergies Allergy/AdvReac Type Severity Reaction Status Date / Time atorvastatin Allergy Dizziness Verified 09/20/20 12:46 morphine Allergy Hallucinati Verified 09/20/20 12:46 ons Home Meds: Home Meds Abaloparatide [Tymlos] 80 mcg SQ DAILY 10/10/19 [History] Acetaminophen 650 mg PO Q6H PRN 10/10/19 [History] Apixaban [Eliquis] 2.5 mg PO BID 10/10/19 [History] Calcium Carbonate [Calcium] 600 mg PO BID 10/10/19 [History] Cholecalciferol (Vitamin D3) [Vitamin D3] 2,000 unit PO DAILY 10/10/19 [History] Cyanocobalamin (Vitamin B-12) [Vitamin B-12] 1,000 mcg PO DAILY 10/10/19 [History] Ergocalciferol (Vitamin D2) [Vitamin D2] 1 tab PO ASDIRECTED 10/10/19 [History] Furosemide [Lasix] 20 mg PO ASDIRECTED PRN 10/10/19 [History] Glimepiride 1 mg PO DAILY 10/10/19 [History] Levothyroxine [Synthroid] 50 mcg PO ACBREAKFAST 10/10/19 [History] Metoprolol Succinate 50 mg PO DAILY 10/10/19 [History] Ondansetron [Ondansetron ODT] 4 mg PO Q8H PRN 10/10/19 [History] Sennosides/Docusate Sodium [Senna-S] 1 tab PO BID 10/10/19 [History] Sotalol [Betapace] 80 mg PO DAILY 10/10/19 [History] Ubidecarenone [Coenzyme Q10] 2 tab PO DAILY 10/10/19 [History] metFORMIN [Glucophage] 500 mg PO BIDMEALS 10/10/19 [History] Acetaminophen [Tylenol Extra Strength] 1,000 mg PO BEDTIME #100 tab 10/12/19 [Rx] Melatonin 10 mg PO BEDTIME #30 tablet 10/12/19 [Rx] lisinopriL [Prinivil] 5 mg PO DAILY #30 tablet 10/12/19 [Rx] amLODIPine [Norvasc] 5 mg PO DAILY #30 tab 10/18/19 [Rx] Past Medical History HEENT History: Reports: Hard of Hearing, Impaired Vision Cardiovascular History: Reports: Afib, CAD, Hypertension, [place], Stents Respiratory History: Reports: Other (See Below) Other Respiratory History: Acute respiratory faiure Gastrointestinal History: Reports: Chronic Constipation [employer]ANT History: Reports: Musculoskeletal History: Reports: Fracture, Osteoporosis Neurological History: Reports: TIA Other Neuro History: Cerebrovasulaar disease Psychiatric History: Reports: Depression Endocrine/Metabolic History: Reports: Diabetes, Type II, Hypothyroidism - Infectious Disease History Infectious Disease History: Reports: Chicken Pox, Measles, Mumps - Past Surgical History Cardiovascular Surgical History: Reports: Coronary Artery Stent GI Surgical History: Reports: Appendectomy Female Surgical History: Reports: Hysterectomy, Salpingo-Oophorectomy Social & Family History - Family History Family Medical History: No Pertinent Family History - Tobacco Use Tobacco Use Status *Q: Never Tobacco User - Caffeine Use Caffeine Use: Reports: Coffee - Recreational Drug Use Recreational Drug Use: No ED ROS GENERAL - Review of Systems Review Of Systems: See Below Constitutional: Reports: No Symptoms HEENT: Reports: No Symptoms Respiratory: Reports: No Symptoms Cardiovascular: Reports: No Symptoms GI/Abdominal: Reports: Abdominal Pain (epigastric mainly, some also diffusely), Constipation. Denies: Black Stool, Bloody Stool, Distension, Hematemesis, Hematochezia, Nausea, Vomiting : Reports: No Symptoms Musculoskeletal: Reports: No Symptoms Skin: Reports: No Symptoms Neurological: Reports: No Symptoms Psychiatric: Reports: No Symptoms ED EXAM, GI/ABD - Physical Exam Exam: See Below Exam Limited By: No Limitations General Appearance: Alert, WD/WN, No Apparent Distress Eyes: Bilateral: Normal Appearance Ears: Normal External Exam, Normal Canal, Hearing Grossly Normal Nose: Normal Inspection, No Blood Throat/Mouth: Normal Inspection, Normal Lips, Normal Oropharynx, Normal Voice, No Airway Compromise Head: Atraumatic, Normocephalic Neck: Normal Inspection Respiratory/Chest: No Respiratory Distress, Lungs Clear, Normal Breath Sounds, No Accessory Muscle Use Cardiovascular: Regular Rate, Rhythm, No Edema GI/Abdominal Exam: Normal Bowel Sounds, Soft, No Distention, Tender (diffusely, worse over the epigastrium and xyphoid process). No: Distended Back Exam: Normal Inspection Extremities: Normal Inspection, Normal Range of Motion, Non-Tender, No Pedal Edema Neurological: Alert, Oriented, CN II-XII Intact, Normal Cognition, No Motor/Sensory Deficits Psychiatric: Normal Affect, Normal Mood Skin Exam: Warm, Dry, Intact, Normal Color, No Rash #1 Interpretation EKG Date: 09/20/20 Time: 13:05 Rhythm: NSR Rate (Beats/Min): 66 [place]: Normal P-Wave: Present QRS: Normal ST-T: Normal QT: Normal Comparison: No Change (flipped T's in V4-V6, not changed from last year.) Course - Vital Signs Last Recorded V/S: Last Vital Signs Temp 36.5 C 09/20/20 12:42 Pulse 67 09/20/20 13:07 Resp 15 09/20/20 13:07 BP 130/52 L 09/20/20 13:07 Pulse Ox 96 09/20/20 13:07 - Orders/Labs/Meds Orders: Active Orders 24 hr Category Date Time Status EKG Documentation Completion [RC] ASDIRECTED Care 09/20/20 12:39 Active EKG 12 Lead [EK] Routine Ther 09/20/20 12:39 Ordered Meds: Medications Discontinued Medications Generic Name Dose Route Start Last Admin Trade Name Freq PRN Reason Stop Dose Admin Acetaminophen 1,000 mg 09/20/20 13:04 09/20/20 14:00 Acetaminophen 500 Mg Tab PO 09/20/20 13:05 1,000 mg ONETIME ONE Administration Bisacodyl 10 mg 09/20/20 13:04 09/20/20 14:02 Bisacodyl 10 Mg Supp RECTAL 09/20/20 13:05 10 mg ONETIME ONE Administration Lactulose 20 gm 09/20/20 13:59 09/20/20 14:07 Lactulose Soln 10 Gm/15 Ml 15 Ml Ud Cup PO 09/20/20 14:00 20 gm ONETIME ONE Administration Polyethylene Glycol 17 gm 09/20/20 13:04 Polyethylene Glycol 3350 Powder 17 Gm Packet PO 09/20/20 13:05 ONETIME ONE - Re-Assessments/Exams Free Text/Narrative Re-Assessment/Exam: 09/20/20 14:59 Daughter refused Miralax saying "It doesn't work". Lactulose given. Primary wants MagCitrate. Will d/c with those instructions. Departure - Departure Time of Disposition: 03:05 Disposition: Home, Self-Care 01 Condition: Good Clinical Impression: Xyphoidalgia Constipation Qualifiers: Constipation type: slow transit constipation Qualified Code(s): K59.01 - Slow transit constipation - Discharge Information *PRESCRIPTION DRUG MONITORING PROGRAM REVIEWED*: No *COPY OF PRESCRIPTION DRUG MONITORING REPORT IN PATIENT DONNA: No Instructions: Constipation, Adult, [id number] Referrals: Payam Calloway MD [Primary Care Provider] - Forms: ED Department Discharge Additional Instructions: Use magnesium citrate, drink a whole bottle. Stay in touch with your primary care provider regarding your progress. Acetaminophen up to 1000 mg every 6 hrs for pain relief as needed. Sepsis Event Note (ED) - Evaluation Sepsis Screening Result: No Definite Risk - Focused Exam Vital Signs: Vital Signs Temp Pulse Resp BP Pulse Ox 09/20/20 13:07 67 15 130/52 L 96 09/20/20 12:47 66 9 L 129/58 L 96 09/20/20 12:42 36.5 C 67 16 129/58 L 95 - My Orders Last 24 Hours: My Active Orders 09/20/20 12:39 EKG Documentation Completion [RC] ASDIRECTED EKG 12 Lead [EK] Routine - Assessment/Plan Last 24 Hours: My Active Orders 09/20/20 12:39 EKG Documentation Completion [RC] ASDIRECTED EKG 12 Lead [EK] Routine
[2020-09-20] MEDS ORDERED: Lactulose Soln 10 GM/15 ML 15 ML UD Cup PO ONE (13:59)
== END 2020-09-20 15:31 | disposition home or self-care (01) ==
LOC: JP.ED 12:34
DX: K59.01 Slow transit constipation (principal); R07.9 Chest pain, unspecified; I48.91 Unspecified atrial fibrillation; I25.10 Atherosclerotic heart disease of native coronary artery without angina pectoris; I10 Essential (primary) hypertension; E03.9 Hypothyroidism, unspecified; I25.2 Old myocardial infarction; E11.9 Type 2 diabetes mellitus without complications; Z88.8 Allergy status to other drugs, medicaments and biological substances; Z88.5 Allergy status to narcotic agent; Z79.01 Long term (current) use of anticoagulants; Z79.899 Other long term (current) drug therapy; Z95.5 Presence of coronary angioplasty implant and graft; Z86.73 Personal history of transient ischemic attack (TIA), and cerebral infarction without residual deficits; Z79.84 Long term (current) use of oral hypoglycemic drugs
CPT/HCPCS: 93005; 99284; A9270; 99283

== ENCOUNTER 2020-09-23 17:11 | Emergency (ER) | payer MEDICARE, BC ==
--- NOTE | 2020-09-23 18:08 | EDM.PDOC ---
ED HPI GENERAL MEDICAL PROBLEM - General Chief Complaint: Abdominal Pain Stated Complaint: BOWEL OBSTRUCTION Time Seen by Provider: 09/23/20 18:00 Source of Information: Reports: Patient, Family History Limitations: Reports: No Limitations - History of Present Illness INITIAL COMMENTS - FREE TEXT/NARRATIVE: 89-year-old female who has had abdominal pain, distention, and decreased bowel movements for the past 4 days. She was seen in the emergency room 3 days ago and has not responded very well to laxatives. She is now developed persistent nausea and vomiting. No fever or chills, no shortness of breath. She does have a history of abdominal surgeries. Onset: Gradual Duration: Day(s): (4 days) Location: Reports: Abdomen (Generalized) Associated Symptoms: Reports: Malaise, Nausea/Vomiting, Weakness. Denies: Chest Pain, Fever/Chills - Related Data Allergies Allergy/AdvReac Type Severity Reaction Status Date / Time atorvastatin Allergy Dizziness Verified 09/23/20 18:00 morphine Allergy Hallucinati Verified 09/23/20 18:00 ons Home Meds: Home Meds Abaloparatide [Tymlos] 80 mcg SQ DAILY 10/10/19 [History] Acetaminophen 650 mg PO Q6H PRN 10/10/19 [History] Apixaban [Eliquis] 2.5 mg PO BID 10/10/19 [History] Calcium Carbonate [Calcium] 600 mg PO BID 10/10/19 [History] Cholecalciferol (Vitamin D3) [Vitamin D3] 2,000 unit PO DAILY 10/10/19 [History] Cyanocobalamin (Vitamin B-12) [Vitamin B-12] 1,000 mcg PO DAILY 10/10/19 [History] Ergocalciferol (Vitamin D2) [Vitamin D2] 1 tab PO ASDIRECTED 10/10/19 [History] Furosemide [Lasix] 20 mg PO ASDIRECTED PRN 10/10/19 [History] Glimepiride 1 mg PO DAILY 10/10/19 [History] Levothyroxine [Synthroid] 50 mcg PO ACBREAKFAST 10/10/19 [History] Metoprolol Succinate 50 mg PO DAILY 10/10/19 [History] Ondansetron [Ondansetron ODT] 4 mg PO Q8H PRN 10/10/19 [History] Sennosides/Docusate Sodium [Senna-S] 1 tab PO BID 10/10/19 [History] Sotalol [Betapace] 80 mg PO DAILY 10/10/19 [History] Ubidecarenone [Coenzyme Q10] 2 tab PO DAILY 10/10/19 [History] metFORMIN [Glucophage] 500 mg PO BIDMEALS 10/10/19 [History] Acetaminophen [Tylenol Extra Strength] 1,000 mg PO BEDTIME #100 tab 10/12/19 [Rx] lisinopriL [Prinivil] 5 mg PO DAILY #30 tablet 10/12/19 [Rx] amLODIPine [Norvasc] 5 mg PO DAILY #30 tab 10/18/19 [Rx] DULoxetine [Cymbalta] 30 mg PO DAILY 09/23/20 [History] traZODone HCl [Trazodone HCl] 50 mg PO BEDTIME 09/23/20 [History] Past Medical History HEENT History: Reports: Hard of Hearing, Impaired Vision Cardiovascular History: Reports: Afib, CAD, Hypertension, CT, Stents Respiratory History: Reports: Other (See Below) Other Respiratory History: Acute respiratory faiure Gastrointestinal History: Reports: Chronic Constipation [employer]ED [employer] History: Reports: Musculoskeletal History: Reports: Fracture, Osteoporosis Neurological History: Reports: TIA Other Neuro History: Cerebrovasulaar disease Psychiatric History: Reports: Depression Endocrine/Metabolic History: Reports: Diabetes, Type II, Hypothyroidism - Infectious Disease History Infectious Disease History: Reports: Chicken Pox, Measles, Mumps - Past Surgical History Cardiovascular Surgical History: Reports: Coronary Artery Stent GI Surgical History: Reports: Appendectomy Female Surgical History: Reports: Hysterectomy, Salpingo-Oophorectomy Social & Family History - Family History Family Medical History: No Pertinent Family History - Tobacco Use Tobacco Use Status *Q: Never Tobacco User - Caffeine Use Caffeine Use: Reports: Coffee ED ROS GENERAL - Review of Systems Review Of Systems: See Below Constitutional: Reports: Malaise. Denies: Fever, Chills HEENT: Reports: No Symptoms Respiratory: Denies: Shortness of Breath Cardiovascular: Denies: Chest Pain, Palpitations GI/Abdominal: Reports: Abdominal Pain, Diarrhea (Small amounts of intermittent watery diarrhea), Nausea, Vomiting : Reports: No Symptoms Skin: Reports: Pallor Neurological: Reports: Weakness Psychiatric: Reports: No Symptoms ED EXAM, GI/ABD - Physical Exam Exam: See Below Exam Limited By: No Limitations General Appearance: Alert, Mild Distress (Looks very uncomfortable, actively retching) Eyes: Bilateral: Normal Appearance (No jaundice) Head: Atraumatic Respiratory/Chest: No Respiratory Distress, Lungs Clear Cardiovascular: Regular Rate, Rhythm GI/Abdominal Exam: Normal Bowel Sounds, Tender (Diffuse tenderness with guarding) Neurological: Alert, Oriented Psychiatric: Anxious Skin Exam: Warm, Dry Course - Vital Signs Last Recorded V/S: Last Vital Signs Temp 96.7 F L 09/23/20 17:56 Pulse 67 09/23/20 19:24 Resp 16 09/23/20 19:24 BP 167/73 H 09/23/20 19:24 Pulse Ox 95 09/23/20 19:24 - Orders/Labs/Meds Labs: Laboratory Tests 09/23/20 09/23/20 09/23/20 Range/Units 18:23 18:23 18:23 WBC 7.1 (4.5-11.0) K/uL RBC 4.61 (3.30-5.50) M/uL Hgb 14.1 (12.0-15.0) g/dL Hct 43.1 (36.0-48.0) % MCV 94 (80-98) fL MCH 31 (27-31) pg MCHC 33 (32-36) % Plt Count 242 (150-400) K/uL Neut % (Auto) 75 H (36-66) % Lymph % (Auto) 13 L (24-44) % Parker % (Auto) 11 H (2-6) % Eos % (Auto) 1 L (2-4) % Baso % (Auto) 0 (0-1) % Sodium 133 L (140-148) mmol/L Potassium 3.9 (3.6-5.2) mmol/L Chloride 95 L (100-108) mmol/L Carbon Dioxide 25 (21-32) mmol/L Anion Gap 16.9 H (5.0-14.0) mmol/L BUN 19 H (7-18) mg/dL Creatinine 1.2 H (0.6-1.0) mg/dL Est Cr Clr Drug Dosing 26.68 mL/min Estimated GFR (MDRD) 42 L (>60) Glucose 229 H (74-106) mg/dL Lactic Acid 1.4 (0.4-2.0) mmol/L Calcium 11.1 H (8.5-10.1) mg/dL Lipase (73-393) U/L 09/23/20 Range/Units 18:56 WBC (4.5-11.0) K/uL RBC (3.30-5.50) M/uL Hgb (12.0-15.0) g/dL Hct (36.0-48.0) % MCV (80-98) fL MCH (27-31) pg MCHC (32-36) % Plt Count (150-400) K/uL Neut % (Auto) (36-66) % Lymph % (Auto) (24-44) % Parker % (Auto) (2-6) % Eos % (Auto) (2-4) % Baso % (Auto) (0-1) % Sodium (140-148) mmol/L Potassium (3.6-5.2) mmol/L Chloride (100-108) mmol/L Carbon Dioxide (21-32) mmol/L Anion Gap (5.0-14.0) mmol/L BUN (7-18) mg/dL Creatinine (0.6-1.0) mg/dL Est Cr Clr Drug Dosing mL/min Estimated GFR (MDRD) (>60) Glucose (74-106) mg/dL Lactic Acid (0.4-2.0) mmol/L Calcium (8.5-10.1) mg/dL Lipase 199 (73-393) U/L Meds: Medications Discontinued Medications Generic Name Dose Route Start Last Admin Trade Name Fabian PRN Reason Stop Dose Admin Fentanyl 25 mcg 09/23/20 18:01 09/23/20 18:17 Fentanyl 100 Mcg/2 Ml Sdv IVPUSH 09/23/20 18:02 25 mcg ONETIME ONE Administration Fentanyl 25 mcg 09/23/20 21:24 09/23/20 21:32 Fentanyl 100 Mcg/2 Ml Sdv IVPUSH 09/23/20 21:25 25 mcg ONETIME ONE Administration Sodium Chloride 1,000 mls @ 500 mls/hr 09/23/20 18:15 09/23/20 18:40 Normal Saline IV 500 mls/hr ASDIRECTED BUCK Administration - Re-Assessments/Exams Free Text/Narrative Re-Assessment/Exam: 09/23/20 18:07 An IV was started, patient will be hydrated with normal saline at 500 cc an hour, and given 25 mcg of IV fentanyl. CBC BMP and lactic acid were obtained, which will be followed by a CT of the abdomen and pelvis without contrast. 09/23/20 19:44 IMPRESSION: 1. Approximately 3.1 x 2.8 cm mass centered in the pancreatic body suspicious for malignancy. Recommend further evaluation with EUS and pancreatic protocol CT or MRI. 2. Large cystic lesion in the pancreatic head measuring 4.9 cm. 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 3. Fluid throughout the colon which can be seen with diarrhea. 4. Acute appearing moderate superior endplate compression fractures of T12 and L1, with mild retropulsion of the posterior superior endplate of L1. 5. Small right pleural effusion. Lipase was normal, lactic acid normal. Dr. Mateo Tolbert of the hospitalist service kindly agreed to see the patient for admission to further evaluate and treat her ongoing symptoms. 09/23/20 20:35 After discussing the findings with the patient, the family elected for her to go to [place] to get more evaluation of the pancreas. She was accepted by Dr. Gipson of the hospitalist service and will be transferred by EMS. Departure - Departure Time of Disposition: 21:50 Disposition: DC/Tfer to Other Clinical Impression: Pancreatic mass Nausea & vomiting Qualifiers: Vomiting type: unspecified Vomiting Intractability: non-intractable Qualified Code(s): R11.2 - Nausea with vomiting, unspecified Abdominal pain Qualifiers: Abdominal location: generalized Qualified Code(s): R10.84 - Generalized abdominal pain - Discharge Information Referrals: Payam Calloway MD [Primary Care Provider] - Forms: ED Department Discharge Care Plan Goals: Patient is to be transferred to [place] for continued monitoring and treatment of acute symptoms as well as evaluation of pancreatic abnormalities which are likely cancer. Sepsis Event Note (ED) - Evaluation Sepsis Screening Result: No Definite Risk - Focused Exam Vital Signs: Vital Signs Temp Pulse Resp BP Pulse Ox 09/23/20 19:24 67 16 167/73 H 95 09/23/20 17:56 96.7 F L 67 16 168/74 H 96 09/23/20 17:47 96.7 F L 67 16 168/74 H 96
[2020-09-23] MEDS: fentaNYL 100 MCG/2 ML SDV IVPUSH ONE ×2 (18:17→21:32)
[2020-09-23] MEDS: Sodium Chloride 0.9% 1,000 ML IV SCH (18:40)
--- NOTE | 2020-09-23 19:41 | CRLCT ---
INDICATION: Distension, pain. TECHNIQUE: CT of the abdomen and pelvis without intravenous contrast. Coronal and sagittal reconstructions. COMPARISON: Abdominal radiograph 10/18/2019. FINDINGS: The unenhanced liver, spleen, and adrenal glands are normal in appearance. Cholelithiasis. There is an ill-defined masslike density centered in the pancreatic body measuring approximately 3.1 x 2.8 cm (series 2, image 25). This is worrisome for malignancy. There is likely vascular encasement. Upstream pancreatic parenchymal atrophy and ductal dilation. There is also a large cystic lesion in the pancreatic head measuring 4.9 cm (series 3, image 33). 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 No hydronephrosis or ureteral dilation. No urinary calculi identified. Left parapelvic renal cysts. Evaluation of the pelvis is limited by motion artifact and streak artifact from bilateral hip arthroplasties. The bladder is not well evaluated. Hysterectomy. No abnormality in the adnexa. Multiple retroperitoneal surgical clips. No evidence of bowel obstruction. There is fluid throughout the colon which can be seen with diarrhea. The appendix is not identified. No intraperitoneal free air or fluid. Aortoiliac vascular calcifications. No lymphadenopathy. Degenerative changes of the spine. There are acute appearing moderate superior endplate compression fractures of T12 and L1. Mild retropulsion of the posterior superior endplate of L1 (series 4, image 55). Small right pleural effusion and right basilar atelectasis. IMPRESSION: 1. Approximately 3.1 x 2.8 cm mass centered in the pancreatic body suspicious for malignancy. Recommend further evaluation with EUS and pancreatic protocol CT or MRI. 2. Large cystic lesion in the pancreatic head measuring 4.9 cm. 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 3. Fluid throughout the colon which can be seen with diarrhea. 4. Acute appearing moderate superior endplate compression fractures of T12 and L1, with mild retropulsion of the posterior superior endplate of L1. 5. Small right pleural effusion. Please note that all CT scans at this facility use dose modulation, iterative reconstruction, and/or weight-based dosing when appropriate to reduce radiation dose to as low as reasonably achievable. Dictated by Melania Sanchez MD @ Sep 23 2020 7:25PM Signed by Dr. Melania Sanchez @ Sep 23 2020 7:39PM
== END 2020-09-23 21:49 | disposition other institution (70) ==
LOC: JP.ED 17:11
DX: K86.89 Other specified diseases of pancreas (principal); R11.2 Nausea with vomiting, unspecified; I48.91 Unspecified atrial fibrillation; I25.10 Atherosclerotic heart disease of native coronary artery without angina pectoris; I25.2 Old myocardial infarction; E11.9 Type 2 diabetes mellitus without complications; E03.9 Hypothyroidism, unspecified; I10 Essential (primary) hypertension; Z79.899 Other long term (current) drug therapy; Z86.73 Personal history of transient ischemic attack (TIA), and cerebral infarction without residual deficits; Z79.01 Long term (current) use of anticoagulants; Z88.8 Allergy status to other drugs, medicaments and biological substances; Z88.5 Allergy status to narcotic agent; Z95.5 Presence of coronary angioplasty implant and graft; Z79.84 Long term (current) use of oral hypoglycemic drugs
CPT/HCPCS: 36415; 74176; 80048; 83605; 83690; 85025; 96374; 96376; 99285; J3010; J7030